=== PATIENT | male | born 1970 | race Caucasian/White ===

== ENCOUNTER 2016-09-15 16:01 | Observation (INO) ==
[2016-09-15] MEDS ORDERED: Ipratropium/Albuterol Neb 3 ML IH ONE (16:26)
[2016-09-15] MEDS ORDERED: methylPREDNISolone 125 MG/2 ML VIAL IVP ONE (16:26)
--- NOTE | 2016-09-15 16:28 | Emergency Department Note ---
Disposition Clinical Impression: Acute exacerbation of chronic obstructive airways disease Disposition: Admitted As Inpatient Referrals: NO,PCP [Non-Partnered Physician] - Forms: ED Satisfaction Letter SOB HPI - General Chief Complaint: ED Shortness of Breath/Dyspnea Stated Complaint: ADELINE, cough Time Seen by Provider: 09/15/16 16:09 Source: patient Mode of arrival: ambulatory Limitations: no limitations Nursing Notes Reviewed: Yes Vital Signs Reviewed: Yes - History of Present Illness Patient is a 45-year-old male with a history of COPD he is coming for shortness of breath and wheezing. In the last month he has had to outpatient course of antibiotics and steroids. He went to his primary care physician today who referred him over here for dyspnea. He has not smoked since Sunday is having difficulty breathing wheezing despite all medical therapy. His last hospitalization was over a year ago for COPD exacerbation Pt Subjective Complaint: shortness of breath Onset (ago): day(s) (2) Context: recent illness Severity: moderate Consistency/Duration: gradually worsening Improves with: oxygen, rest, bronchodilators, upright position Worsens with: exertion Known history of: COPD Associated symptoms: Reports: chest pain, cough, wheezing. Denies: fever Treatment prior to arrival: bronchodilator Cough present: Yes Cough Description: Involuntary Cough Frequency: Intermittent Sputum production: No - Related Data Home Medications Medication Instructions Recorded Confirmed Albuterol Sulfate [Albuterol 0 puff IH Q6HR PRN 03/26/15 08/13/16 Inhaler] Allopurinol [Zyloprim 100 MG] 100 mg PO BID 03/26/15 08/13/16 Atorvastatin [Lipitor] 20 mg PO HS 03/26/15 08/13/16 Furosemide [Lasix] 40 mg PO DAILY 03/26/15 08/13/16 Lisinopril [Zestril] 20 mg PO DAILY 03/26/15 08/13/16 Metformin [Glucophage] 1,000 mg PO BIDWM 03/26/15 08/13/16 Metoprolol [Lopressor] 50 mg PO BID 03/26/15 08/13/16 Multivitamin/Iron/Folic Acid 1 each PO DAILY 03/26/15 08/13/16 [Centrum Complete Multivit Tab] Potassium Chloride 10 meq PO DAILY 03/26/15 08/13/16 Pregabalin [Lyrica] 150 mg PO BID 03/26/15 08/13/16 Oxycodone HCl/Acetaminophen 1 each PO TID 08/13/16 08/13/16 [Percocet 7.5-325 mg Tablet] Previous Rx's Medication Instructions Recorded PredniSONE 40 mg PO DAILY #10 tablet 04/19/16 Dicyclomine [Bentyl] 10 mg PO QID #24 capsule 08/13/16 MetroNIDAZOLE [Flagyl] 500 mg PO TID #21 tablet 08/13/16 Ondansetron ODT [Zofran ODT] 4 mg SL Q6HR #20 tab.rapdis 08/13/16 Allergies Allergy/AdvReac Type Severity Reaction Status Date / Time acetaminophen [From Lortab] AdvReac Vomiting Verified 08/13/16 13:51 hydrocodone [From Lortab] AdvReac Vomiting Verified 08/13/16 13:51 morphine AdvReac Headache Verified 08/13/16 13:51 NSAIDS (Non-Steroidal AdvReac Nausea Verified 08/13/16 13:51 Anti-Inflamma All systems ED: reviewed and negative except as stated. Constitutional: Denies: fever, chills, weakness Gastrointestinal: Denies: abdominal pain, nausea, vomiting Past Medical History - Past Medical History Source: patient, old records reviewed, nursing notes reviewed Medical history: Reports: asthma, CHF, COPD, diabetes, hyperlipidemia, hypertension, kidney stones, renal disease, other Surgical history: Reports: other (Tonsillectomy, left knee scope, left clavicle fixation, right thumb surgery) Psychiatric history: Reports: anxiety, depression, panic disorder, PTSD - Social History Smoking Status: Current some day smoker Smokeless Tobacco Status: No Alcohol use: Reports: none Drug use: Reports: none Physical Exam - General Limitations: no limitations General appearance: alert, in distress (respiratory) - Head Head exam: atraumatic - Eye Eye exam: Present: normal appearance, PERRL, EOMI - Expanded Eye Exam Pupils: Left: reactive - ENT ENT exam: normal exam, normal oropharynx, mucous membranes moist - Expanded ENT Exam External ear exam: Present: normal external inspection Mouth exam: Present: normal external inspection Teeth exam: Present: normal inspection Throat exam: Present: normal inspection - Neck Neck exam: Present: normal inspection, full ROM, trachea midline - Chest Chest inspection: Present: normal inspection, symmetric chest wall rise - Respiratory Respiratory exam: Present: respiratory distress (mild, ), wheezes (scattered), accessory muscle use, prolonged expiratory phase - Cardiovascular Cardiovascular exam: Present: regular rate, normal rhythm, normal heart sounds - Abdominal Exam Abdominal exam: Present: soft, Non-Tender. Absent: tenderness, distention, guarding, rebound, rigidity - Extremities Exam Extremities exam: Present: normal inspection, full ROM. Absent: tenderness, pedal edema - Expanded Upper Extremity Exam Shoulder exam: Present: normal inspection, full ROM Arm exam: Present: normal inspection, full ROM Elbow exam: Present: normal inspection, full ROM Forearm/Wrist exam: Present: normal inspection, full ROM Hand exam: Present: normal inspection, full ROM Vascular exam: Normal: capillary refill, radial pulse - Expanded Lower Extremity Exam Hip/Pelvis exam: Present: normal inspection, full ROM Upper leg exam: Present: normal inspection, full ROM Knee exam: Present: normal inspection, full ROM Lower leg exam: Present: normal inspection, full ROM Ankle exam: Present: normal inspection, full ROM Foot/toe exam: Present: normal inspection, full ROM Neurovascular/Tendon exam: Absent: motor deficit, sensory deficit, tendon deficit - Back Exam Back exam: Present: normal inspection, full ROM. Absent: tenderness - Neurological Exam Neurological exam: Present: alert, oriented X3 - Expanded Neurological Exam Patient oriented to: Present: person, place, time Coma Scale Eye Opening: Spontaneous Coma Scale Motor Response: Obeys Commands Coma Scale Verbal Response: Oriented Coma Scale Total: 15 - Psychiatric Psychiatric exam: Present: normal affect, normal mood - Skin Skin exam: Present: warm, dry, intact, normal color Course - Reevaluation(s) Reevaluation #1: some improvement in breathing Time: 17:58 Vital Signs Temperature 97.8 F 09/15/16 16:02 Pulse Rate 79 09/15/16 16:02 Respiratory Rate 16 09/15/16 16:02 Blood Pressure 169/96 09/15/16 16:02 O2 Sat by Pulse Oximetry 93 L 09/15/16 16:02 Temperature 97.8 F 09/15/16 16:02 Pulse Rate 79 09/15/16 16:02 Respiratory Rate 16 09/15/16 16:33 Blood Pressure 169/96 09/15/16 16:33 O2 Sat by Pulse Oximetry 95 09/15/16 16:33 Oxygen Delivery Oxygen Delivery Room Air Shortness of Breath/Dyspnea - Differential Diagnosis Likely: acute exacerbation of chronic obstructive airways disease, congestive heart failure, pneumonia, asthma with exacerbation, arrhythmia - Medical Records Medical records reviewed: Yes I reviewed the patient's medical records. - Lab Data Lab results reviewed: Yes I reviewed the patient's lab results. Result diagrams: 09/15/16 16:20 09/15/16 16:20 Lab Results 09/15/16 09/15/16 09/15/16 Range/Units 16:20 16:20 16:20 WBC 13.1 H (4.3-11.1) K/mcL RBC 6.28 H (4.19-5.50) M/mcL Hgb 16.0 (12.9-16.9) g/dL Hct 49.9 (37.5-50.1) % MCV 79.5 L (83.0-100.0) fL MCH 25.5 L (28.0-33.3) pg MCHC 32.1 (31.6-35.5) g/dL RDW 17.2 H (11.5-14.5) % Plt Count 231 (140-400) K/mcL MPV 10.7 (9.4-12.4) fL Immature Gran % 1.3 (0-4) % Seg Neutrophils % 75.6 % Lymphocytes % 12.5 % Monocytes % 6.9 % Eosinophils % 3.1 % Basophils % 0.6 % Neutrophils # 9.9 H (1.6-8.9) K/mcL Lymphocytes # 1.6 (0.6-4.6) K/mcL Monocytes # 0.9 (0.0-1.3) K/mcL Eosinophils # 0.4 (0.0-0.6) K/mcL Basophils # 0.1 (0.0-0.2) K/mcL PT 13.3 H (9.4-12.1) Seconds INR 1.2 APTT 33.5 (26.0-36.0) Seconds Sodium 140 (136-145) mEq/L Potassium 3.6 (3.5-4.5) mEq/L Chloride 101 (98-109) mEq/L Carbon Dioxide 26 (19-29) mEq/L BUN 19 (8-26) mg/dL Creatinine 1.08 (0.72-1.25) mg/dL Est GFR ( Amer) > 60 (> 60) Est GFR (Non-Af Amer) > 60 (> 60) BUN/Creatinine Ratio 18 (6-26) Glucose 109 H (70-99) mg/dL Calculated Osmolality 293 (280-300) Calcium 10.0 (8.6-10.8) mg/dL Troponin I (0-0.03) ng/mL B-Natriuretic Peptide (0-100) pg/mL 09/15/16 09/15/16 Range/Units 16:20 16:20 WBC (4.3-11.1) K/mcL RBC (4.19-5.50) M/mcL Hgb (12.9-16.9) g/dL Hct (37.5-50.1) % MCV (83.0-100.0) fL MCH (28.0-33.3) pg MCHC (31.6-35.5) g/dL RDW (11.5-14.5) % Plt Count (140-400) K/mcL MPV (9.4-12.4) fL Immature Gran % (0-4) % Seg Neutrophils % % Lymphocytes % % Monocytes % % Eosinophils % % Basophils % % Neutrophils # (1.6-8.9) K/mcL Lymphocytes # (0.6-4.6) K/mcL Monocytes # (0.0-1.3) K/mcL Eosinophils # (0.0-0.6) K/mcL Basophils # (0.0-0.2) K/mcL PT (9.4-12.1) Seconds INR APTT (26.0-36.0) Seconds Sodium (136-145) mEq/L Potassium (3.5-4.5) mEq/L Chloride (98-109) mEq/L Carbon Dioxide (19-29) mEq/L BUN (8-26) mg/dL Creatinine (0.72-1.25) mg/dL Est GFR ( Amer) (> 60) Est GFR (Non-Af Amer) (> 60) BUN/Creatinine Ratio (6-26) Glucose (70-99) mg/dL Calculated Osmolality (280-300) Calcium (8.6-10.8) mg/dL Troponin I 0.03 (0-0.03) ng/mL B-Natriuretic Peptide 21 (0-100) pg/mL - Radiology Data Radiology results reviewed: Yes I reviewed the patient's radiology results. - EKG Data EKG attestation: Yes I reviewed and interpreted this EKG. EKG shows normal: Reports: sinus rhythm Rate: Reports: normal (86) Rhythm: Reports: NSR [place]/QRS: Reports: normal Interpretation: Reports: nonspecific ST-T wave changes
[2016-09-15] MEDS ORDERED: Ipratropium/Albuterol Neb 3 ML ONE (16:29)
[2016-09-15 17:02] LABS: Basophils # 0.1 K/mcL (0.0-0.2); Basophils % 0.6 %; Eosinophils # 0.4 K/mcL (0.0-0.6); Eosinophils % 3.1 %; Hematocrit 49.9 % (37.5-50.1); Immature Granulocytes % 1.3 % (0-4); Lymphocytes # 1.6 K/mcL (0.6-4.6); Lymphocytes % 12.5 %; Mean Corpuscular HGB Conc 32.1 g/dL (31.6-35.5); Mean Corpuscular Hemoglobin 25.5 pg (28.0-33.3); Mean Corpuscular Volume 79.5 fL (83.0-100.0); Mean Platelet Volume 10.7 fL (9.4-12.4); Monocytes # 0.9 K/mcL (0.0-1.3); Monocytes % 6.9 %; Neutrophils # 9.9 K/mcL (1.6-8.9); Platelet Count 231 K/mcL (140-400); Red Blood Count 6.28 M/mcL (4.19-5.50); Red Cell Distribution Width 17.2 % (11.5-14.5); Segmented Neutrophils % 75.6 %
[2016-09-15 17:07] LABS: INR 1.2; Prothrombin Time 13.3 Seconds (9.4-12.1)
[2016-09-15 17:10] LABS: Activated Partial Thrombo Time 33.5 Seconds (26.0-36.0)
[2016-09-15 17:20] LABS: BUN/Creatinine Ratio 18 (6-26); Blood Urea Nitrogen 19 mg/dL (8-26); Carbon Dioxide 26 mEq/L (19-29); Chloride 101 mEq/L (98-109); Glucose 109 mg/dL (70-99); Osmolality,Calculated 293 (280-300); Potassium 3.6 mEq/L (3.5-4.5); Sodium 140 mEq/L (136-145); eGFR For African Americans > 60 (> 60); eGFR For Non-African Americans > 60 (> 60)
[2016-09-15] MEDS ORDERED: Levofloxacin 750 MG/150 ML 750 MG/150 ML BAG IVPB ONE (17:36)
[2016-09-15] MEDS ORDERED: Furosemide 40 MG/4 ML VIAL IVP ONE (21:19)
--- NOTE | 2016-09-15 21:53 | Internal Med History&Physical ---
Date of Encounter: 09/15/16 Time of Encounter: 21:49 Assessment and Plan (1) Acute exacerbation of chronic obstructive airways disease Current visit: Yes Status: Acute Patient will be started on IV steroids q 4h breathing treatments and Levaquin for acute bronchitis. (2) CHF (congestive heart failure) Current visit: No Status: Chronic 80 mg of iV lasix given now. Will start the patient only 640 mg IV twice a day. Strict intake and output Qualifiers: Congestive heart failure type: diastolic Congestive heart failure chronicity: acute on chronic Qualified Code(s): I50.33 - Acute on chronic diastolic (congestive) heart failure (3) DM (diabetes mellitus), type 2 with renal complications Current visit: No Status: Chronic Sliding scale insulin Qualifiers: Diabetes mellitus complication detail: with chronic kidney disease Chronic kidney disease stage: stage 3 (moderate) Qualified Code(s): E11.22 - Type 2 diabetes mellitus with diabetic chronic kidney disease; N18.3 - Chronic kidney disease, stage 3 (moderate); Z79.4 - adjunct faculty for medical terminology (current) use of insulin (4) ELIZABETH on CPAP Current visit: Yes Status: Acute Continue CPAP Internal Medicine - H&P: HPI Chief complaint: sob History of present illness: Mr. Beth is a 45 year old male with multiple medical problems including history of diastolic congestive heart failure, COPD not on home oxygen, obstructive sleep apnea on CPAP presents to the emergency room today with shortness of breath. Patient mentioned that his respiratory status has actually been declining for the past one month. He had just completed a course of prednisone 40 mg a day for 5 days and a week of antibiotic which he does not recall its name without any improvement in his symptoms. For the past 3 days he has been noticing progressive shortness of breath for he is unable to breathe rest, nonproductive cough chest wheezing. In addition patient has shortness of breath that worsens when he lays flat and bilateral lower extremity swelling. He denies any chest pain. He denies any fevers. He had a prior angiogram showing no conclusive coronary artery disease. patient continues to actively smoke affects cigarettes daily. Past Med Surg Social Fam HX - Past Medical History Medical history: asthma, CHF, COPD, diabetes, hyperlipidemia, hypertension, kidney stones, renal disease, other Psychiatric history: anxiety, depression, panic disorder, PTSD - Past Surgical History Surgical History: other (Tonsillectomy, left knee scope, left clavicle fixation , right thumb surgery) - Social History Smoking Status: Current some day smoker Smokeless Tobacco Status: No Alcohol use: none Drug use: none - Family History Mother Living Status: Father Living Status: Hx Family Cardiac Disorders: Yes Internal Medicine - H&P: Meds Albuterol Sulfate [Albuterol Inhaler] 2 puff IH Q4H PRN 03/26/15 [History] Allopurinol [Zyloprim 100 MG] 100 mg PO BID 03/26/15 [History] Atorvastatin [Lipitor] 20 mg PO HS 03/26/15 [History] Lisinopril [Zestril] 20 mg PO DAILY 03/26/15 [History] Metformin [Glucophage] 1,000 mg PO BIDWM 03/26/15 [History] Metoprolol [Lopressor] 50 mg PO BID 03/26/15 [History] Multivitamin/Iron/Folic Acid [Centrum Complete Multivit Tab] 1 each PO DAILY [History] Potassium Chloride 20 meq PO DAILY 03/26/15 [History] Pregabalin [Lyrica] 150 mg PO BID 03/26/15 [History] Oxycodone HCl/Acetaminophen [Percocet 7.5-325 mg Tablet] 1 each PO TID PRN 08/13 [History] Fluticasone/Salmeterol [Advair 250-50 Diskus] 1 each IH BID 09/15/16 [History] Furosemide [Lasix] 20 mg PO BID 09/15/16 [History] Tiotropium [Spiriva] 18 mcg IH DAILY 09/15/16 [History] Trazodone HCl 150 mg PO HS 09/15/16 [History] Allergies acetaminophen [From Lortab] Adverse Reaction (Verified 08/13/16 13:51) Vomiting hydrocodone [From Lortab] Adverse Reaction (Verified 08/13/16 13:51) Vomiting morphine Adverse Reaction (Verified 08/13/16 13:51) Headache NSAIDS (Non-Steroidal Anti-Inflamma Adverse Reaction (Verified 08/13/16 13:51) Nausea All Systems PM: A 10-system review of systems was performed and is negative for pertinent findings except as documented above in the HPI. Review of systems: 10 point ROS is negative except for HPI - Constitutional Vitals: Temp Pulse Resp BP Pulse Ox 97.5 F L 89 18 181/100 89 L 09/15/16 21:11 09/15/16 21:11 09/15/16 21:11 09/15/16 21:11 09/15/16 21:11 Exam: Gen.: patient is alert and oriented times 3 and often distress cardiac: normal S1 S2 no additional sounds or murmurs chest: bilateral basil crackles. Scattered expiratory wheezing. Conversational dyspnea lower extremity 2+ swelling Neuro: no focal neurological deficit Internal Med - H&P Results - Labs CBC & Chem 7: 09/15/16 16:20 09/15/16 16:20
[2016-09-15] MEDS: *HR* OxyCODONE/APAP 7.5/325 TABLET PO PRN (22:31)
[2016-09-15] MEDS: Ipratropium/Albuterol Neb 3 ML IH SCH (23:19)
[2016-09-16] MEDS: methylPREDNISolone 125 MG/2 ML VIAL IVP SCH ×5 (00:25→23:44)
[2016-09-16] MEDS: Ipratropium/Albuterol Neb 3 ML IH SCH ×6 (04:08→23:50)
[2016-09-16 04:54] LABS: Basophils % 0.2 %; Hematocrit 50.5 % (37.5-50.1); Immature Granulocytes % 1.8 % (0-4); Lymphocytes # 0.5 K/mcL (0.6-4.6); Lymphocytes % 5.6 %; Mean Corpuscular HGB Conc 31.7 g/dL (31.6-35.5); Mean Corpuscular Hemoglobin 25.1 pg (28.0-33.3); Mean Corpuscular Volume 79.3 fL (83.0-100.0); Mean Platelet Volume 10.6 fL (9.4-12.4); Monocytes # 0.1 K/mcL (0.0-1.3); Monocytes % 0.8 %; Neutrophils # 8.2 K/mcL (1.6-8.9); Platelet Count 230 K/mcL (140-400); Red Blood Count 6.37 M/mcL (4.19-5.50); Red Cell Distribution Width 16.8 % (11.5-14.5); Segmented Neutrophils % 91.6 %
[2016-09-16 05:16] LABS: BUN/Creatinine Ratio 18 (6-26); Blood Urea Nitrogen 20 mg/dL (8-26); Calcium 9.7 mg/dL (8.6-10.8); Carbon Dioxide 24 mEq/L (19-29); Chloride 101 mEq/L (98-109); Creatine Kinase 48 Units/L (30-200); Glucose 241 mg/dL (70-99); Magnesium 1.9 mg/dL (1.6-2.6); Osmolality,Calculated 297 (280-300); Potassium 3.9 mEq/L (3.5-4.5); Sodium 138 mEq/L (136-145); eGFR For African Americans > 60 (> 60); eGFR For Non-African Americans > 60 (> 60)
[2016-09-16] MEDS: *HR* Enoxaparin 40 MG/0.4 ML SYRINGE SQ SCH (05:38)
[2016-09-16] MEDS: Insulin LISPRO 300 UNITS/3 ML VIAL SQ SCH ×3 (08:10→17:40)
[2016-09-16] MEDS: Famotidine 20 MG TABLET PO SCH ×2 (08:10→17:40)
[2016-09-16] MEDS: Pregabalin 75 MG CAPSULE PO SCH ×2 (08:10→20:01)
[2016-09-16] MEDS: Furosemide 40 MG/4 ML VIAL IV SCH ×2 (08:13→20:01)
[2016-09-16] MEDS ORDERED: Furosemide 40 MG in 0.9 % Sodium Chloride 50 ML IVPB SCH (09:00)
[2016-09-16] MEDS: Budesonide/Formoterol 80/4.5 MDI IH SCH ×2 (09:09→19:54)
[2016-09-16] MEDS: *HR* OxyCODONE/APAP 7.5/325 TABLET PO PRN ×2 (09:17→17:49)
--- NOTE | 2016-09-16 16:31 | Internal Med Progress Note ---
Date of Encounter: 09/16/16 Time of Encounter: 10:00 - Assessment and plan (1) CHF exacerbation Current Visit: Yes Status: Acute Assessment and plan: Previous echo shows moderate diastolic dysfunction. Will continue with IV diuretic treatment. Manage hypertension. Qualifiers: Congestive heart failure type: diastolic Qualified Code(s): I50.33 - Acute on chronic diastolic (congestive) heart failure (2) Acute exacerbation of chronic obstructive airways disease Current Visit: Yes Status: Acute Assessment and plan: We will continue antibiotic, steroid, and bronchodilator. Oxygen supplement. (3) ELIZABETH on CPAP Current Visit: Yes Status: Acute Assessment and plan: Continue CPAP during night (4) DM (diabetes mellitus), type 2 with renal complications Current Visit: No Status: Chronic Assessment and plan: Patient was on metformin at home. We will cover him with sliding scale. Qualifiers: Diabetes mellitus complication detail: with chronic kidney disease Chronic kidney disease stage: stage 3 (moderate) Qualified Code(s): E11.22 - Type 2 diabetes mellitus with diabetic chronic kidney disease; N18.3 - Chronic kidney disease, stage 3 (moderate); Z79.4 - care home (current) use of insulin (5) DVT prophylaxis Current Visit: No Status: Acute Assessment and plan: Lovenox sc (6) Hypertension Current Visit: Yes Status: Acute Assessment and plan: Continue home medications Qualifiers: Hypertension type: essential hypertension Qualified Code(s): I10 - Essential (primary) hypertension - Time Spent With Patient 25 - 35 minutes - Subjective Interval history: Patient is a 45 year old male admitted for shortness of breath. Consider CHF exacerbation and COPD exacerbation. His past medical history is significant for COPD, CHF, diabetes, hyperlipidemia, hypertension. Patient was seen and examined. His shortness of breath has improved after treatment. Patient is in no acute respiratory distress when I saw him. No fever, vital signs stable, still need high-level oxygen to maintain oxygen saturation. Will continue diuretics, antibiotics, steroids, and the bronchodilator treatment. Continue close monitoring. - Constitutional Vitals: Temp Pulse Resp BP Pulse Ox 97.8 F 69 18 151/68 91 L 09/16/16 15:20 09/16/16 15:20 09/16/16 15:20 09/16/16 15:20 09/16/16 15:27 General appearance: Present: mild distress, A&O X 3, answers questions appropriately - Head Head exam: Present: atraumatic, normocephalic - Eye Eye exam: Present: PERRL, conjuntiva pink, sclera anicteric Pupils: Present: PERRL - Neck Neck exam general surgery: Present: supple, trachea midline. Absent: lymphadenopathy - Respiratory Respiratory exam: Present: CTAB, wheezes (Scattered wheezes bilaterally). Absent: accessory muscle use, rales, rhonchi - Cardiovascular Cardiovascular exam: Present: RRR, +S1, +S2. Absent: diastolic murmur, gallop, rubs, systolic murmur - GI/Abdominal GI/Abdominal exam: Present: normal bowel sounds, soft, no peritoneal signs. Absent: distended, tenderness - Extremities Exam Extremities exam: Present: warm, radial pulses palpable and symetrical. Absent : calf tenderness, cyanotic, pedal edema - Neurological Exam Neurological exam: Present: CN II-XII intact, oriented X3, no focal deficits. Absent: pronater drift, facial droop, speech deficit - Skin Skin exam: Present: dry, intact Internal Medicine: Result - Labs CBC & Chem 7: 09/16/16 04:27 09/16/16 04:27 Labs: Short CBC 09/16/16 Range/Units 04:27 WBC 9.0 (4.3-11.1) K/mcL Hgb 16.0 (12.9-16.9) g/dL Hct 50.5 H (37.5-50.1) % Plt Count 230 (140-400) K/mcL Neutrophils # 8.2 (1.6-8.9) K/mcL BMP 09/16/16 04:27 Sodium 138 Potassium 3.9 Chloride 101 Carbon Dioxide 24 BUN 20 Creatinine 1.11 Glucose 241 H Calcium 9.7 Cardiac Enzymes 09/15/16 09/16/16 Range/Units 22:31 04:27 Troponin I 0.02 0.01 (0-0.03) ng/mL - ABG Interpretation ABG results: PT/INR, D-dimer PT 13.3 Seconds (9.4-12.1) H 09/15/16 16:20 Consult Discharge Plan - Plan Referrals: Rangel Puentes DO [Primary Care Provider] -
[2016-09-16] MEDS ORDERED: *HR* OxyCODONE/APAP 7.5/325 TABLET PO PRN (16:33)
[2016-09-16] MEDS: Lisinopril 20 MG TABLET PO SCH (17:40)
[2016-09-16] MEDS: Levofloxacin 750 MG/150 ML 750 MG/150 ML BAG IVPB SCH (17:41)
[2016-09-16] MEDS: traZODone 50 MG TABLET PO SCH (20:01)
[2016-09-16] MEDS ORDERED: Insulin LISPRO 300 UNITS/3 ML VIAL SQ SCH (21:00)
[2016-09-17] MEDS: Ipratropium/Albuterol Neb 3 ML IH SCH ×6 (03:27→23:18)
[2016-09-17] MEDS: *HR* OxyCODONE/APAP 7.5/325 TABLET PO PRN ×3 (04:00→20:12)
[2016-09-17] MEDS: *HR* Enoxaparin 40 MG/0.4 ML SYRINGE SQ SCH (06:03)
[2016-09-17] MEDS: methylPREDNISolone 125 MG/2 ML VIAL IVP SCH ×3 (06:05→23:27)
[2016-09-17] MEDS: Lisinopril 20 MG TABLET PO SCH (07:35)
[2016-09-17] MEDS: Pregabalin 75 MG CAPSULE PO SCH ×2 (07:35→20:13)
[2016-09-17] MEDS: Multivit/Ca/Min/Fe/FA 1 TAB TABLET PO SCH (07:35)
[2016-09-17] MEDS: Insulin LISPRO 300 UNITS/3 ML VIAL SQ SCH ×4 (07:35→20:12)
[2016-09-17] MEDS: Furosemide 40 MG/4 ML VIAL IV SCH ×2 (07:35→20:12)
[2016-09-17] MEDS: Famotidine 20 MG TABLET PO SCH ×2 (07:35→16:55)
[2016-09-17 08:07] LABS: Basophils % 0.1 %; Hemoglobin 15.1 g/dL (12.9-16.9); Immature Granulocytes % 1.4 % (0-4); Lymphocytes # 0.6 K/mcL (0.6-4.6); Lymphocytes % 3.2 %; Mean Corpuscular HGB Conc 31.5 g/dL (31.6-35.5); Mean Corpuscular Hemoglobin 25.1 pg (28.0-33.3); Mean Corpuscular Volume 79.9 fL (83.0-100.0); Mean Platelet Volume 11.6 fL (9.4-12.4); Monocytes # 0.6 K/mcL (0.0-1.3); Monocytes % 3.3 %; Neutrophils # 16.8 K/mcL (1.6-8.9); Platelet Count 241 K/mcL (140-400); Red Blood Count 6.01 M/mcL (4.19-5.50); Red Cell Distribution Width 16.7 % (11.5-14.5)
[2016-09-17 08:09] LABS: BUN/Creatinine Ratio 29 (6-26); Calcium 9.3 mg/dL (8.6-10.8); Carbon Dioxide 25 mEq/L (19-29); Chloride 100 mEq/L (98-109); Glucose 227 mg/dL (70-99); Osmolality,Calculated 300 (280-300); Sodium 138 mEq/L (136-145); eGFR For African Americans > 60 (> 60); eGFR For Non-African Americans > 60 (> 60)
[2016-09-17 08:10] LABS: Blood Urea Nitrogen 33 mg/dL (8-26)
[2016-09-17] MEDS: Tiotropium 18 MCG inhalation IH SCH (09:05)
[2016-09-17] MEDS: Budesonide/Formoterol 80/4.5 MDI IH SCH ×2 (09:05→19:58)
--- NOTE | 2016-09-17 13:31 | Electrocardiograph Report ---
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
[2016-09-17] MEDS: Levofloxacin 750 MG/150 ML 750 MG/150 ML BAG IVPB SCH (16:56)
--- NOTE | 2016-09-17 17:46 | Internal Med Progress Note ---
Date of Encounter: 09/17/16 Time of Encounter: 10:00 - Assessment and plan (1) CHF exacerbation Current Visit: Yes Status: Acute Assessment and plan: Previous echo shows moderate diastolic dysfunction. Will continue with IV diuretic treatment. Manage hypertension. Qualifiers: Congestive heart failure type: diastolic Qualified Code(s): I50.33 - Acute on chronic diastolic (congestive) heart failure (2) Acute exacerbation of chronic obstructive airways disease Current Visit: Yes Status: Acute Assessment and plan: We will continue antibiotic, steroid, and bronchodilator. Oxygen supplement. No wheezing now, taper down steroids. (3) ELIZABETH on CPAP Current Visit: Yes Status: Acute Assessment and plan: Continue CPAP during night (4) DM (diabetes mellitus), type 2 with renal complications Current Visit: No Status: Chronic Assessment and plan: Patient was on metformin at home. We will cover him with sliding scale. Patient has steroid induced hyperglycemia, increased to high dose correction insulin dose Qualifiers: Diabetes mellitus complication detail: with chronic kidney disease Chronic kidney disease stage: stage 3 (moderate) Qualified Code(s): E11.22 - Type 2 diabetes mellitus with diabetic chronic kidney disease; N18.3 - Chronic kidney disease, stage 3 (moderate); Z79.4 - retirement (current) use of insulin (5) DVT prophylaxis Current Visit: No Status: Acute Assessment and plan: Lovenox sc (6) Hypertension Current Visit: Yes Status: Acute Assessment and plan: Continue home medications, add nifedipine because BP is poorly controlled Qualifiers: Hypertension type: essential hypertension Qualified Code(s): I10 - Essential (primary) hypertension - Time Spent With Patient 25 - 35 minutes - Subjective Interval history: Patient is a 45 year old male admitted for shortness of breath. Consider CHF exacerbation and COPD exacerbation. His past medical history is significant for COPD, CHF, diabetes, hyperlipidemia, hypertension. Patient was seen and examined. His shortness of breath has improved after treatment. Patient is in no acute respiratory distress when I saw him. No fever, vital signs stable, oxygen requirement get down. Oxygen saturation 94% on 2 L. Will continue diuretics, antibiotics, steroids, and the bronchodilator treatment. Taper down steroid dose. Continue close monitoring. - Constitutional Vitals: Temp Pulse Resp BP Pulse Ox 97.6 F 71 16 182/78 94 L 09/17/16 15:43 09/17/16 15:43 09/17/16 16:02 09/17/16 15:43 09/17/16 16:02 General appearance: Present: mild distress, A&O X 3, answers questions appropriately - Head Head exam: Present: atraumatic, normocephalic - Eye Eye exam: Present: PERRL, conjuntiva pink, sclera anicteric Pupils: Present: PERRL - Neck Neck exam general surgery: Present: supple, trachea midline. Absent: lymphadenopathy - Respiratory Respiratory exam: Present: CTAB. Absent: accessory muscle use, rales, rhonchi, wheezes - Cardiovascular Cardiovascular exam: Present: RRR, +S1, +S2. Absent: diastolic murmur, gallop, rubs, systolic murmur - GI/Abdominal GI/Abdominal exam: Present: normal bowel sounds, soft, no peritoneal signs. Absent: distended, tenderness - Extremities Exam Extremities exam: Present: warm, radial pulses palpable and symetrical. Absent : calf tenderness, cyanotic, pedal edema - Neurological Exam Neurological exam: Present: CN II-XII intact, oriented X3, no focal deficits. Absent: pronater drift, facial droop, speech deficit - Skin Skin exam: Present: dry, intact Internal Medicine: Result - Labs CBC & Chem 7: 09/17/16 07:06 09/17/16 07:06 Labs: Short CBC 09/17/16 Range/Units 07:06 WBC 18.3 H D (4.3-11.1) K/mcL Hgb 15.1 (12.9-16.9) g/dL Hct 48.0 (37.5-50.1) % Plt Count 241 (140-400) K/mcL Neutrophils # 16.8 H (1.6-8.9) K/mcL BMP 09/17/16 07:06 Sodium 138 Potassium 4.0 Chloride 100 Carbon Dioxide 25 BUN 33 H D Creatinine 1.13 Glucose 227 H Calcium 9.3 - ABG Interpretation ABG results: PT/INR, D-dimer PT 13.3 Seconds (9.4-12.1) H 09/15/16 16:20 - VTE Documentation of Mechanical Device: Intermittent pneumatic compression device Consult Discharge Plan - Plan Referrals: Rangel Puentes DO [Primary Care Provider] -
[2016-09-17] MEDS: NIFEdipine XL (24 HR) 60 MG TAB.ER.24 PO SCH (18:06)
[2016-09-17] MEDS: traZODone 50 MG TABLET PO SCH (20:13)
[2016-09-18] MEDS: Ipratropium/Albuterol Neb 3 ML IH SCH ×6 (03:32→23:31)
[2016-09-18] MEDS: *HR* OxyCODONE/APAP 7.5/325 TABLET PO PRN ×3 (04:45→22:12)
[2016-09-18 05:14] LABS: Basophils % 0.1 %; Hematocrit 50.5 % (37.5-50.1); Hemoglobin 15.5 g/dL (12.9-16.9); Immature Granulocytes % 1.5 % (0-4); Lymphocytes # 0.5 K/mcL (0.6-4.6); Lymphocytes % 2.7 %; Mean Corpuscular HGB Conc 30.7 g/dL (31.6-35.5); Mean Corpuscular Hemoglobin 24.7 pg (28.0-33.3); Mean Corpuscular Volume 80.4 fL (83.0-100.0); Mean Platelet Volume 10.9 fL (9.4-12.4); Monocytes # 0.5 K/mcL (0.0-1.3); Monocytes % 3.1 %; Neutrophils # 16.4 K/mcL (1.6-8.9); Platelet Count 231 K/mcL (140-400); Red Blood Count 6.28 M/mcL (4.19-5.50); Red Cell Distribution Width 17.5 % (11.5-14.5); Segmented Neutrophils % 92.6 %
[2016-09-18 05:31] LABS: BUN/Creatinine Ratio 33 (6-26); Calcium 9.3 mg/dL (8.6-10.8); Carbon Dioxide 22 mEq/L (19-29); Chloride 102 mEq/L (98-109); Glucose 201 mg/dL (70-99); Osmolality,Calculated 303 (280-300); Potassium 4.1 mEq/L (3.5-4.5); Sodium 138 mEq/L (136-145); eGFR For African Americans > 60 (> 60); eGFR For Non-African Americans 58 (> 60)
[2016-09-18 05:36] LABS: Blood Urea Nitrogen 44 mg/dL (8-26)
[2016-09-18] MEDS: *HR* Enoxaparin 40 MG/0.4 ML SYRINGE SQ SCH (06:32)
[2016-09-18] MEDS: Furosemide 40 MG/4 ML VIAL IV SCH (08:05)
[2016-09-18] MEDS: Famotidine 20 MG TABLET PO SCH (08:06)
[2016-09-18] MEDS: NIFEdipine XL (24 HR) 60 MG TAB.ER.24 PO SCH (08:06)
[2016-09-18] MEDS: Multivit/Ca/Min/Fe/FA 1 TAB TABLET PO SCH (08:06)
[2016-09-18] MEDS: Pregabalin 75 MG CAPSULE PO SCH ×2 (08:06→22:11)
[2016-09-18] MEDS: Lisinopril 20 MG TABLET PO SCH (08:07)
[2016-09-18] MEDS: Insulin LISPRO 300 UNITS/3 ML VIAL SQ SCH ×4 (08:07→22:13)
[2016-09-18] MEDS: Tiotropium 18 MCG inhalation IH SCH (08:19)
[2016-09-18] MEDS: Budesonide/Formoterol 80/4.5 MDI IH SCH ×2 (08:21→20:34)
[2016-09-18] MEDS: methylPREDNISolone 125 MG/2 ML VIAL IVP SCH (11:51)
--- NOTE | 2016-09-18 15:24 | Internal Med Progress Note ---
Date of Encounter: 09/18/16 Time of Encounter: 10:00 - Assessment and plan (1) CHF exacerbation Current Visit: Yes Status: Acute Assessment and plan: Previous echo shows moderate diastolic dysfunction. Hold Lasix because of elevated creatinine. Fluid restriction for 1500 milligrams per day. Manage hypertension. Qualifiers: Congestive heart failure type: diastolic Qualified Code(s): I50.33 - Acute on chronic diastolic (congestive) heart failure (2) Acute exacerbation of chronic obstructive airways disease Current Visit: Yes Status: Acute Assessment and plan: We will continue antibiotic, and bronchodilator. Oxygen supplement. No wheezing now, will DC steroids. (3) ELIZABETH on CPAP Current Visit: Yes Status: Acute Assessment and plan: Continue CPAP during night (4) DM (diabetes mellitus), type 2 with renal complications Current Visit: No Status: Chronic Assessment and plan: Patient was on metformin at home. We will cover him with sliding scale. Patient has steroid induced hyperglycemia, increased to high dose correction insulin dose, D/C steroid. Qualifiers: Diabetes mellitus complication detail: with chronic kidney disease Chronic kidney disease stage: stage 3 (moderate) Qualified Code(s): E11.22 - Type 2 diabetes mellitus with diabetic chronic kidney disease; N18.3 - Chronic kidney disease, stage 3 (moderate); Z79.4 - continuous churn buttermaker (current) use of insulin (5) DVT prophylaxis Current Visit: No Status: Acute Assessment and plan: Lovenox sc (6) Hypertension Current Visit: Yes Status: Acute Assessment and plan: Continue home medications, add nifedipine because BP is poorly controlled. Now BP is stable after nifedipine placed. Qualifiers: Hypertension type: essential hypertension Qualified Code(s): I10 - Essential (primary) hypertension - Time Spent With Patient 25 - 35 minutes - Subjective Interval history: Patient is a 45 year old male admitted for shortness of breath. Consider CHF exacerbation and COPD exacerbation. His past medical history is significant for COPD, CHF, diabetes, hyperlipidemia, hypertension. Patient was seen and examined. His shortness of breath has improved after treatment. Patient is in no acute respiratory distress when I saw him. No fever, vital signs stable, oxygen requirement get down. Oxygen saturation 94% on 2 L. Will continue antibiotics, and the bronchodilator treatment. D/C steroid. Patient has a slightly worsening creatinine level, we will hold the Lasix. Patient has a good urine output but not negative fluid balance, will place fluid restriction. Patient has severe cough today, nonproductive. Will add Robitussin-AC. Continue close monitoring. - Constitutional Vitals: Temp Pulse Resp BP Pulse Ox 97.4 F L 61 18 135/74 99 09/18/16 10:44 09/18/16 10:44 09/18/16 11:39 09/18/16 10:44 09/18/16 11:39 General appearance: Present: A&O X 3, no acute distress, answers questions appropriately - Head Head exam: Present: atraumatic, normocephalic - Eye Eye exam: Present: PERRL, conjuntiva pink, sclera anicteric Pupils: Present: PERRL - Neck Neck exam general surgery: Present: supple, trachea midline. Absent: lymphadenopathy - Respiratory Respiratory exam: Present: CTAB. Absent: accessory muscle use, rales, rhonchi, wheezes - Cardiovascular Cardiovascular exam: Present: RRR, +S1, +S2. Absent: diastolic murmur, gallop, rubs, systolic murmur - GI/Abdominal GI/Abdominal exam: Present: normal bowel sounds, soft, no peritoneal signs. Absent: distended, tenderness - Extremities Exam Extremities exam: Present: warm, radial pulses palpable and symetrical. Absent : calf tenderness, cyanotic, pedal edema - Neurological Exam Neurological exam: Present: CN II-XII intact, oriented X3, no focal deficits. Absent: pronater drift, facial droop, speech deficit - Skin Skin exam: Present: dry, intact Internal Medicine: Result - Labs CBC & Chem 7: 09/18/16 04:20 09/18/16 04:20 Labs: Short CBC 09/18/16 Range/Units 04:20 WBC 17.6 H (4.3-11.1) K/mcL Hgb 15.5 (12.9-16.9) g/dL Hct 50.5 H (37.5-50.1) % Plt Count 231 (140-400) K/mcL Neutrophils # 16.4 H (1.6-8.9) K/mcL BMP 09/18/16 04:20 Sodium 138 Potassium 4.1 Chloride 102 Carbon Dioxide 22 BUN 44 H D Creatinine 1.33 H Glucose 201 H Calcium 9.3 - ABG Interpretation ABG results: PT/INR, D-dimer PT 13.3 Seconds (9.4-12.1) H 09/15/16 16:20 - VTE Documentation of Mechanical Device: Intermittent pneumatic compression device Consult Discharge Plan - Plan Referrals: Rangel Puentes DO [Primary Care Provider] -
[2016-09-18] MEDS: Levofloxacin 750 MG/150 ML 750 MG/150 ML BAG IVPB SCH (17:17)
[2016-09-18] MEDS: GuaiFENesin/Codeine Oral Soln 5 ML UDC PO SCH ×2 (17:18→22:11)
[2016-09-18 20:28] LABS: CK-MB (CK isoenzymes) 0 % (0-4); CK-MM (CK-isoenzymes) 100 % (96-100)
[2016-09-18 20:28] LABS: CK-MB (CK isoenzymes) 0 % (0-4); CK-MM (CK-isoenzymes) 100 % (96-100)
[2016-09-18] MEDS: traZODone 50 MG TABLET PO SCH (22:11)
[2016-09-19] MEDS: Ipratropium/Albuterol Neb 3 ML IH SCH ×3 (03:51→12:08)
[2016-09-19 05:17] LABS: Basophils % 0.1 %; Hematocrit 46.8 % (37.5-50.1); Lymphocytes # 0.9 K/mcL (0.6-4.6); Lymphocytes % 5.7 %; Mean Corpuscular HGB Conc 32.1 g/dL (31.6-35.5); Mean Corpuscular Hemoglobin 25.7 pg (28.0-33.3); Mean Corpuscular Volume 80.1 fL (83.0-100.0); Mean Platelet Volume 11.1 fL (9.4-12.4); Monocytes # 1.3 K/mcL (0.0-1.3); Monocytes % 8.3 %; Neutrophils # 12.9 K/mcL (1.6-8.9); Platelet Count 202 K/mcL (140-400); Red Blood Count 5.84 M/mcL (4.19-5.50); Red Cell Distribution Width 16.4 % (11.5-14.5); Segmented Neutrophils % 83.9 %
[2016-09-19] MEDS: GuaiFENesin/Codeine Oral Soln 5 ML UDC PO SCH (06:30)
[2016-09-19] MEDS: *HR* OxyCODONE/APAP 7.5/325 TABLET PO PRN (06:31)
[2016-09-19] MEDS: *HR* Enoxaparin 40 MG/0.4 ML SYRINGE SQ SCH (06:31)
[2016-09-19 07:02] LABS: BUN/Creatinine Ratio 46 (6-26); Blood Urea Nitrogen 54 mg/dL (8-26); Carbon Dioxide 22 mEq/L (19-29); Chloride 104 mEq/L (98-109); Glucose 189 mg/dL (70-99); Osmolality,Calculated 308 (280-300); Sodium 139 mEq/L (136-145); eGFR For African Americans > 60 (> 60); eGFR For Non-African Americans > 60 (> 60)
[2016-09-19] MEDS: Budesonide/Formoterol 80/4.5 MDI IH SCH (08:02)
[2016-09-19] MEDS: NIFEdipine XL (24 HR) 60 MG TAB.ER.24 PO SCH (08:33)
[2016-09-19] MEDS: Pregabalin 75 MG CAPSULE PO SCH (08:33)
[2016-09-19] MEDS: Multivit/Ca/Min/Fe/FA 1 TAB TABLET PO SCH (08:33)
[2016-09-19] MEDS: Insulin LISPRO 300 UNITS/3 ML VIAL SQ SCH (08:34)
[2016-09-19] MEDS: Lisinopril 20 MG TABLET PO SCH (08:34)
[2016-09-19 10:01] LABS: CK Total (Ck Isoenzymes) 65 U/L (20-200); CK-BB (CK isoenzymes) 0 % (0-0)
[2016-09-19 10:02] LABS: CK Total (Ck Isoenzymes) 49 U/L (20-200); CK-BB (CK isoenzymes) 0 % (0-0)
[2016-09-19 11:06] VITALS: BP 119/71
--- NOTE | 2016-09-19 11:19 | Discharge Summary ---
Date of Encounter: 09/19/16 Time of Encounter: 10:30 - Discharge Diagnosis (1) CHF exacerbation Priority: Primary Status: Acute Qualifiers: Congestive heart failure type: diastolic Qualified Code(s): I50.33 - Acute on chronic diastolic (congestive) heart failure (2) Acute exacerbation of chronic obstructive airways disease Priority: Primary Status: Acute (3) ELIZABETH on CPAP Priority: Primary Status: Acute (4) DM (diabetes mellitus), type 2 with renal complications Priority: Secondary Status: Chronic Qualifiers: Diabetes mellitus complication detail: with chronic kidney disease Chronic kidney disease stage: stage 3 (moderate) Qualified Code(s): E11.22 - Type 2 diabetes mellitus with diabetic chronic kidney disease; N18.3 - Chronic kidney disease, stage 3 (moderate); Z79.4 - long term acute care registered nurse (current) use of insulin (5) DVT prophylaxis Priority: Secondary Status: Acute (6) Hypertension Priority: Secondary Status: Acute Qualifiers: Hypertension type: essential hypertension Qualified Code(s): I10 - Essential (primary) hypertension - Discharge Medications Prescriptions: GuaiFENesin/Codeine [ROBITUSSIN w/CODEINE] 10 ml PO Q6HR 14 Days NIFEdipine XL (24 HR) [Procardia XL] 60 mg PO DAILY #30 tab.er.24 Home Medications: Albuterol Sulfate [Albuterol Inhaler] 2 puff IH Q4H PRN 03/26/15 [History] Allopurinol [Zyloprim 100 MG] 100 mg PO BID 03/26/15 [History] Atorvastatin [Lipitor] 20 mg PO HS 03/26/15 [History] Lisinopril [Zestril] 20 mg PO DAILY 03/26/15 [History] Metformin [Glucophage] 1,000 mg PO BIDWM 03/26/15 [History] Metoprolol [Lopressor] 50 mg PO BID 03/26/15 [History] Multivitamin/Iron/Folic Acid [Centrum Complete Multivit Tab] 1 each PO DAILY [History] Potassium Chloride 20 meq PO DAILY 03/26/15 [History] Pregabalin [Lyrica] 150 mg PO BID 03/26/15 [History] Oxycodone HCl/Acetaminophen [Percocet 7.5-325 mg Tablet] 1 each PO TID PRN 08/13 [History] Fluticasone/Salmeterol [Advair 250-50 Diskus] 1 each IH BID 09/15/16 [History] Furosemide [Lasix] 20 mg PO BID 09/15/16 [History] Tiotropium [Spiriva] 18 mcg IH DAILY 09/15/16 [History] Trazodone HCl 150 mg PO HS 09/15/16 [History] GuaiFENesin/Codeine [ROBITUSSIN w/CODEINE] 10 ml PO Q6HR 14 Days 09/19/16 [Rx] NIFEdipine XL (24 HR) [Procardia XL] 60 mg PO DAILY #30 tab.er.24 09/19/16 [Rx] Allergies/Adverse Reactions: Allergies acetaminophen [From Lortab] Adverse Reaction (Verified 08/13/16 13:51) Vomiting hydrocodone [From Lortab] Adverse Reaction (Verified 08/13/16 13:51) Vomiting morphine Adverse Reaction (Verified 08/13/16 13:51) Headache NSAIDS (Non-Steroidal Anti-Inflamma Adverse Reaction (Verified 08/13/16 13:51) Nausea - Notes to Outpatient Provider Pt's HTN is poorly controlled, nefidepine XL 60mg po daily was added to his med list, please f/u BP change. Date of admission: 09/15/16 18:10 Primary care physician: Rangel Puentes, Consults: 09/15/16 21:37 Consult to Occupational Therapy [CONS] Routine Comment: Evaluate, develop and implement POC Consult to Physical Therapy [CONS] Routine Comment: Evaluate, develop and implement POC Consult to Offset Second Press Operator [CONS] Routine Reason for SW Consult: Home care Discharging clinician: Ean Gregorio Anticipated date of discharge: 09/19/16 - Patient Status Disposition: Home, Self-Care Condition: Good Functional capacity at discharge: independent ambulation Overall status at discharge: patient is back to baseline - Discharge Instructions Follow Up With: Rangel Puentes, [Primary Care Provider] - 09/22/16 2:30 pm - Diet and Activity Activity: increase activity as tolerated Diet: diabetic diet, low salt diet Interval History: Mr. Beth is a 45 year old male with multiple medical problems including history of diastolic congestive heart failure, COPD not on home oxygen, obstructive sleep apnea on CPAP presents to the emergency room today with shortness of breath. Patient mentioned that his respiratory status has actually been declining for the past one month. He had just completed a course of prednisone 40 mg a day for 5 days and a week of antibiotic which he does not recall its name without any improvement in his symptoms. For the past 3 days he has been noticing progressive shortness of breath for he is unable to breathe rest, nonproductive cough chest wheezing. In addition patient has shortness of breath that worsens when he lays flat and bilateral lower extremity swelling. He denies any chest pain. He denies any fevers. He had a prior angiogram showing no conclusive coronary artery disease. patient continues to actively smoke affects cigarettes daily. Hospital course: Mr. Beth is a 45 year old male admitted for CHF and COPD exacerbation. He was treated with Abx, steroid, bronchodilator, and diuretics. After treatment, he is clinically improved. SOB resolved, wheezing resolved. He has uncontrolled HTN which was improved by adding nefidepine on his medication. He feels good and can be discharged to home, f/u with his PCP in one week. Pt was seen and examined. He is awake, alert, oriented x 3. In no acute respiratory distress. Cough symptoms has improved on robitussin AC. Vitals stable, lab reviewed unremarkable. Will d/c pt home today. He is very sensitive to steroid (hyperglycemia), will d/c po steroid. Resume his home meds. He was educated fluid restriction and low salt diet. He will f/u with PCP in one week. - Time Spent with Patient Total time spent providing and/or coordinating discharge services: 40 minutes. Greater than 30 minutes - Constitutional Vitals: Temp Pulse Resp BP Pulse Ox 97.7 F 53 16 119/71 96 09/19/16 11:04 09/19/16 11:04 09/19/16 11:04 09/19/16 11:04 09/19/16 11:04 General appearance: Present: A&O X 3, no acute distress, answers questions appropriately - Head Head exam: Present: atraumatic, normocephalic - Eye Eye exam: Present: PERRL, conjuntiva pink, sclera anicteric Pupils: Present: PERRL - Neck Neck exam general surgery: Present: supple, trachea midline. Absent: lymphadenopathy - Respiratory Respiratory exam: Present: CTAB. Absent: accessory muscle use, rales, rhonchi, wheezes - Cardiovascular Cardiovascular exam: Present: RRR, +S1, +S2. Absent: diastolic murmur, gallop, rubs, systolic murmur - GI/Abdominal GI/Abdominal exam: Present: normal bowel sounds, soft, no peritoneal signs. Absent: distended, tenderness - Extremities Exam Extremities exam: Present: warm, radial pulses palpable and symetrical. Absent : calf tenderness, cyanotic, pedal edema - Neurological Exam Neurological exam: Present: CN II-XII intact, oriented X3, no focal deficits. Absent: pronater drift, facial droop, speech deficit - Skin Skin exam: Present: dry, intact - VTE Documentation of Mechanical Device: Intermittent pneumatic compression device
== END 2016-09-19 13:18 | disposition home or self-care (01) ==
LOC: EMEROO 16:01 → 3BNU 16:01 → SUATTDRO 21:37
PROVIDERS: ADMIT Internal Medicine; ATTEND Internal Medicine

== ENCOUNTER 2017-09-25 14:49 | Inpatient (IN) ==
[2017-09-25] MEDS ORDERED: Ipratropium/Albuterol Neb 3 ML IH ONE (15:20)
[2017-09-25] MEDS ORDERED: methylPREDNISolone 125 MG/2 ML VIAL IVP ONE (15:22)
[2017-09-25] MEDS ORDERED: Levofloxacin 750 MG/150 ML 750 MG/150 ML BAG IVPB ONE (15:23)
--- NOTE | 2017-09-25 15:33 | Emergency Department Note ---
Disposition Clinical Impression: Acute exacerbation of chronic obstructive airways disease, Hypoxia Community acquired pneumonia Qualifiers: Laterality: unspecified laterality Qualified Code(s): J18.9 - Pneumonia, unspecified organism Disposition: Admitted As Inpatient Condition: Fair Referrals: Rangel Puentes DO [Primary Care Provider] - Forms: ED Satisfaction Letter Time of Disposition: 16:25 SOB HPI - General Chief Complaint: ED Shortness of Breath/Dyspnea Stated Complaint: ADELINE From Res Clinic Time Seen by Provider: 09/25/17 14:59 Source: patient Mode of arrival: ambulatory Limitations: no limitations Nursing Notes Reviewed: Yes Vital Signs Reviewed: Yes - History of Present Illness 46-year-old male history of COPD, hyperlipidemia, hypertension, CHF, presents plan of shortness of breath, history of COPD and CHF, [id number] diabetes, presents with shortness of breath for several days, he has had some fever and chills, productive cough. She reports increased wheezing, he has got oxygen at home that he uses as needed but has required more lately. Chest tightness 3/10. Patient denies hemoptysis denies unilateral leg swelling or history of DVT or PE. Pt Subjective Complaint: shortness of breath Onset (ago): minute(s) Severity: mild Consistency/Duration: constant Improves with: nothing Worsens with: nothing Known history of: COPD, asthma, congestive heart failure Associated symptoms: Reports: cough, wheezing. Denies: chest pain, pain with inspiration, sputum production, orthopnea, lower extremity pain, polydipsia, parasthesias, palpitations Treatment prior to arrival: none Cough present: Yes Cough Description: Voluntary Cough Frequency: Intermittent Sputum production: Yes Sputum Amount: Scant Sputum Color: Clear - Related Data Home Medications Medication Instructions Recorded Confirmed Albuterol Sulfate [Albuterol 2 puff IH Q4H PRN 03/26/15 09/25/17 Inhaler] Lisinopril [Zestril] 20 mg PO DAILY 03/26/15 09/25/17 Metoprolol [Lopressor] 50 mg PO BID 03/26/15 09/25/17 Multivitamin/Iron/Folic Acid 1 each PO DAILY 03/26/15 09/25/17 [Centrum Complete Multivit Tab] Potassium Chloride 20 meq PO DAILY 03/26/15 09/25/17 Pregabalin [Lyrica] 150 mg PO BID 03/26/15 09/25/17 Fluticasone/Salmeterol [Advair 1 each IH BID 09/15/16 09/25/17 250-50 Diskus] Tiotropium [Spiriva] 18 mcg IH DAILY 09/15/16 09/25/17 Trazodone HCl 150 mg PO HS 09/15/16 09/25/17 Allopurinol [Zyloprim] 300 mg PO DAILY 09/25/17 09/25/17 Atorvastatin Calcium [Lipitor] 20 mg PO HS 09/25/17 09/25/17 Fluticasone/Vilanterol [Breo 1 each IH DAILY 09/25/17 09/25/17 Ellipta 100-25 Mcg INH] Furosemide [Lasix] 40 mg PO BID 09/25/17 09/25/17 Morphine Sulfate/Naltrexone 1 each PO BID 09/25/17 09/25/17 [Embeda ER 30-1.2 mg Capsule] Omeprazole [PriLOSEC] 20 mg PO DAILY 09/25/17 09/25/17 OxyCODONE/APAP 10/325 [Percocet 1 each PO Q6H PRN 09/25/17 09/25/17 10/325 MG] Sertraline [Zoloft] 100 mg PO DAILY 09/25/17 09/25/17 Allergies Allergy/AdvReac Type Severity Reaction Status Date / Time hydrocodone [From Lortab] AdvReac Vomiting Verified 10/29/16 15:08 morphine AdvReac Headache Verified 10/29/16 15:08 NSAIDS (Non-Steroidal AdvReac Nausea Verified 10/29/16 15:08 Anti-Inflamma All systems ED: reviewed and negative except as stated. Review of Systems: As Per HPI Constitutional: Reports: fever, chills Eyes: Denies: eye pain ENT ED: Denies: ear pain, throat pain Cardiovascular: Reports: as per HPI, chest pain Respiratory: Reports: as per HPI, cough, dyspnea, wheezes. Denies: hemoptysis Gastrointestinal: Denies: abdominal pain Genitourinary: Denies: urgency, dysuria Musculoskeletal: Denies: back pain Integumentary: Denies: rash Psychiatric: Denies: anxiety Past Medical History - Past Medical History Attestation: Yes The following information was validated with the patient. Source: patient Medical history: Reports: asthma, CHF, COPD, diabetes, hyperlipidemia, hypertension, kidney stones, renal disease, other Surgical history: Reports: other Psychiatric history: Reports: anxiety, depression, panic disorder, PTSD - Social History Smoking Status: Light tobacco smoker Smokeless Tobacco Status: No Alcohol use: Reports: none Drug use: Reports: none Physical Exam Constitutional: Middle-aged male in mild respiratory distress satting 88% on room air, 95% on 2 L Neck: normal inspection, neck is supple, no JVD Resp: Diffuse inspiratory and expiratory wheezes, decreased respiratory excursion and increased accessory muscles CV: Sinus bradycardia, no murmurs/gallops/rubs, S1 and S2 heard Extremity: +2 bilateral radial and posterial tibial pulses, no pedal edema GI: normal inspection, Soft, NTND, no peritoneal signs, no palpable abdominal aortic aneurysm Back: normal inspection, no tenderness to palpation Neuro: A&O3, no gross motor or sensory deficits bilaterally MSK: normal inspection, bilateral UE and LE with normal ROM Skin: No rashes, skin warm, dry, intact - General Limitations: no limitations General appearance: alert Course Course Narrative: 46-year-old male with shortness of breath, concern for COPD exacerbation, patient appeared hypoxic was placed on nasal cannula, given more do nebs and breathing treatments, he was sent from the residency clinic and the plan was already for admission to the hospitalist Dr. Mahoney, Dr. Ambrocio come down to the bedside and evaluate the patient as well. Plan is for Levaquin, basic labs CBC BMP to, lactated blood cultures. - Reevaluation(s) Reevaluation #1: After evaluation, the patient has no elevation in troponin, he had a mild EKG depression, was given aspirin, also some duo nebs 3, slightly Medrol, eloquent started for community acquired pneumonia possibility, with bilateral infiltrates on x-ray, admitted to the hospital service Lian atkins. Time: 16:25 Vital Signs Temperature 97.9 F 09/25/17 14:51 Pulse Rate 52 09/25/17 14:51 Respiratory Rate 20 09/25/17 14:51 Blood Pressure 136/83 09/25/17 14:51 O2 Sat by Pulse Oximetry 88 09/25/17 14:51 Temperature 97.9 F 09/25/17 14:51 Pulse Rate 56 09/25/17 16:03 Respiratory Rate 18 09/25/17 16:03 Blood Pressure 132/76 09/25/17 16:03 O2 Sat by Pulse Oximetry 99 09/25/17 16:03 Oxygen Delivery Oxygen Delivery Aerosol Mask Shortness of Breath/Dyspnea - Differential Diagnosis Likely: acute exacerbation of chronic obstructive airways disease, congestive heart failure - Medical Records Medical records reviewed: Yes I reviewed the patient's medical records. - Lab Data Lab results reviewed: Yes I reviewed the patient's lab results. Result diagrams: 09/25/17 15:31 09/25/17 15:31 Lab Results 09/25/17 09/25/17 09/25/17 Range/Units 15:31 15:31 15:31 WBC 10.5 (4.3-11.1) K/mcL RBC 5.44 (4.19-5.50) M/mcL Hgb 14.4 (12.9-16.9) g/dL Hct 43.6 (37.5-50.1) % MCV 80.1 L (83.0-100.0) fL MCH 26.5 L (28.0-33.3) pg MCHC 33.0 (31.6-35.5) g/dL RDW 14.9 H (11.5-14.5) % Plt Count 269 (140-400) K/mcL MPV 10.9 (9.4-12.4) fL Immature Gran % 1.5 (0-4) % Seg Neutrophils % 71.0 % Lymphocytes % 14.3 % Monocytes % 8.2 % Eosinophils % 4.2 % Basophils % 0.8 % Neutrophils # 7.4 (1.6-8.9) K/mcL Lymphocytes # 1.5 (0.6-4.6) K/mcL Monocytes # 0.9 (0.0-1.3) K/mcL Eosinophils # 0.4 (0.0-0.6) K/mcL Basophils # 0.1 (0.0-0.2) K/mcL Sodium 139 (136-145) mEq/L Potassium 3.3 L (3.5-5.1) mEq/L Chloride 105 (98-107) mEq/L Carbon Dioxide 30 H (23-29) mEq/L BUN 14 (6-20) mg/dL Creatinine 0.98 (0.70-1.30) mg/dL Est GFR ( Amer) > 60 (> 60) Est GFR (Non-Af Amer) > 60 (> 60) BUN/Creatinine Ratio 14 (6-26) Glucose 89 (70-105) mg/dL Calculated Osmolality 288 (280-300) Calcium 9.3 (8.6-10.3) mg/dL Troponin I < 0.03 (< 0.04) ng/mL B-Natriuretic Peptide (Less than 100) pg/mL 09/25/17 Range/Units 15:31 WBC (4.3-11.1) K/mcL RBC (4.19-5.50) M/mcL Hgb (12.9-16.9) g/dL Hct (37.5-50.1) % MCV (83.0-100.0) fL MCH (28.0-33.3) pg MCHC (31.6-35.5) g/dL RDW (11.5-14.5) % Plt Count (140-400) K/mcL MPV (9.4-12.4) fL Immature Gran % (0-4) % Seg Neutrophils % % Lymphocytes % % Monocytes % % Eosinophils % % Basophils % % Neutrophils # (1.6-8.9) K/mcL Lymphocytes # (0.6-4.6) K/mcL Monocytes # (0.0-1.3) K/mcL Eosinophils # (0.0-0.6) K/mcL Basophils # (0.0-0.2) K/mcL Sodium (136-145) mEq/L Potassium (3.5-5.1) mEq/L Chloride (98-107) mEq/L Carbon Dioxide (23-29) mEq/L BUN (6-20) mg/dL Creatinine (0.70-1.30) mg/dL Est GFR ( Amer) (> 60) Est GFR (Non-Af Amer) (> 60) BUN/Creatinine Ratio (6-26) Glucose (70-105) mg/dL Calculated Osmolality (280-300) Calcium (8.6-10.3) mg/dL Troponin I (< 0.04) ng/mL B-Natriuretic Peptide 138 H (Less than 100) pg/mL - Radiology Data Radiology results reviewed: Yes I reviewed the patient's radiology results. Chest X-Ray 09/25/17 14:59 IMPRESSION: Bilateral interstitial infiltrates could represent atypical pneumonia or possibly pulmonary edema D/ / 09/25/2017 15:25:50 Rangel Price MD / elisa Interpreting Provider: Rangel Price MD - EKG Data EKG attestation: Yes I reviewed and interpreted this EKG. EKG shows normal: Reports: sinus rhythm Rate: Reports: bradycardia Rhythm: Reports: NSR [place]/QRS: Reports: normal Q waves: Reports: v2, v3, v4, v5 T wave inversions noted in: Reports: v2, v3, v4, v5 Interpretation: Reports: nonspecific ST-T wave changes - Core Measures AMI Core Measures Followed: No Attestation Statement - Attestation Attestation: I, Jef Viramontes DO, examined this patient [id number] and my medical decision-making was reviewed with Dr. Daniel Garber, Resident Physician. I agree with the documented findings, disposition and treatment plan as described except to the extent set forth below. Please see my progress notes for details. 46-year-old male presents to emergency room complaining of shortness of breath. He was seen at the residency clinic today and evaluated by his primary care provider. They recommended admission. This process has been established at this time. Primary medical provider by the patient in the emergency room establish inpatient management. Chest x-ray EKG labs will be completed in the ED as well as an influenza swab. Once this was completed patient will be admitted. Currently he has coarse sounding wheezes bilaterally. Heart is regular. Abdomen soft. No acute signs of cardiac related disease. Consider zone for COPD. Patient also describes some generalized malaise and fevers at home. Currently denying any other symptoms at this time. Patient denied any chest pain fevers chills nausea vomiting diarrhea headache or vision change Coming in. The main complaint is shortness of breath. Patient will be admitted for definitive management of this time once the workup is completed. See detailed documentation of the physical exam, medical intervention, medical decision-making and disposition and the resident physician's note. No critical care provider this patient's treatment course. Antibiotic regimen will be started at the request of the primary care provider.
[2017-09-25 15:45] LABS: Basophils # 0.1 K/mcL (0.0-0.2); Basophils % 0.8 %; Eosinophils # 0.4 K/mcL (0.0-0.6); Eosinophils % 4.2 %; Hematocrit 43.6 % (37.5-50.1); Hemoglobin 14.4 g/dL (12.9-16.9); Immature Granulocytes % 1.5 % (0-4); Lymphocytes # 1.5 K/mcL (0.6-4.6); Lymphocytes % 14.3 %; Mean Corpuscular Hemoglobin 26.5 pg (28.0-33.3); Mean Corpuscular Volume 80.1 fL (83.0-100.0); Mean Platelet Volume 10.9 fL (9.4-12.4); Monocytes # 0.9 K/mcL (0.0-1.3); Monocytes % 8.2 %; Neutrophils # 7.4 K/mcL (1.6-8.9); Platelet Count 269 K/mcL (140-400); Red Blood Count 5.44 M/mcL (4.19-5.50); Red Cell Distribution Width 14.9 % (11.5-14.5)
[2017-09-25] MEDS: Aspirin 81 MG TAB.CHEW PO SCH (15:57)
[2017-09-25 15:59] LABS: BUN/Creatinine Ratio 14 (6-26); Blood Urea Nitrogen 14 mg/dL (6-20); Calcium 9.3 mg/dL (8.6-10.3); Carbon Dioxide 30 mEq/L (23-29); Chloride 105 mEq/L (98-107); Glucose 89 mg/dL (70-105); Osmolality,Calculated 288 (280-300); Potassium 3.3 mEq/L (3.5-5.1); Sodium 139 mEq/L (136-145); eGFR For African Americans > 60 (> 60); eGFR For Non-African Americans > 60 (> 60)
[2017-09-25] MEDS ORDERED: Naloxone 0.4 MG/ML INJ IVP PRN (16:33)
[2017-09-25] MEDS ORDERED: Acetaminophen 325 MG TABLET PO PRN (16:33)
[2017-09-25] MEDS ORDERED: Potassium Chloride Elixir 20 MEQ/15 ML UDC PO ONE (16:39)
[2017-09-25] MEDS: *HR* OxyCODONE/APAP 10/325 TABLET PO PRN ×2 (17:39→23:44)
--- NOTE | 2017-09-25 17:48 | Internal Med History&Physical ---
<Rangel Puentes Muna - Last Filed: 09/25/17 17:45> Date of Encounter: 09/25/17 Time of Encounter: 17:45 Assessment and Plan (1) Acute respiratory failure with hypoxia Current visit: Yes Status: Acute Patient hypoxic on arrival to the emergency department. Secondary to acute exacerbation of COPD in the setting of likely viral upper respiratory infection. Continue supplemental oxygen to keep oxygen above 88%. (2) Acute exacerbation of chronic obstructive pulmonary disease (COPD) Current visit: Yes Status: Acute Secondary to likely viral upper respiratory infection. Patient did have increased opacification of the left lower lobe on chest x-ray with diffuse rhonchi. We will treat with scheduled bronchodilators and when necessary DuoNeb nebs in between, Solu-Medrol 60 mg IV every 6 hours, Levaquin 750 mg daily. Continue supplemental oxygen as discussed above. (3) Hypokalemia Current visit: Yes Status: Acute Potassium slightly low on presentation, likely related to chronic diuretic use. We will supplement with potassium chloride 40 mEq once and continue his home by mouth potassium (4) Heart failure with preserved ejection fraction Current visit: No Status: Chronic Stable. No evidence of acute exacerbation. Continue home Lasix. (5) PTSD (post-traumatic stress disorder) Current visit: No Status: Chronic Stable. Recent inpatient psychiatric hospitalization. No acute symptoms. Continue home medications. (6) ELIZABETH on CPAP Current visit: No Status: Acute Continue CPAP at night (7) Hypertension Current visit: Yes Status: Chronic Mildly hypertensive, likely related to acute exacerbation of COPD. Continue home medications. Qualifiers: Hypertension type: essential hypertension Qualified Code(s): I10 - Essential (primary) hypertension (8) DVT prophylaxis Current visit: Yes Status: Acute Lovenox 40 mg subcutaneous daily Internal Medicine - H&P: HPI Chief complaint: Dyspnea Admitted From: Emergency Dept Plans for Post Hospital Care: Home History of present illness: Mr. Beth is a 46 year old male with history of COPD, CHF, hypertension, chronic pain who presented with shortness of breath. Patient was seen in the outpatient office where he was acutely dyspneic with complaints of cough and wheezing. Patient states the symptoms have been going on for approximately a week after he was released from an inpatient psych facility where he reports being exposed to a patient with the flu. He had progressive worsening of her shortness of breath that was particularly worse with exertion, feeling of tightness in his chest that was worse with deep breath and cough. Worsening of cough with difficulty producing sputum. He has attempted to treat himself at home with inhalers and nebulizers but this did not resolve his symptoms. He reports subjective fever at home but did not measure his temperature. He states this feels similar to his previous COPD exacerbations. He denies lower extremity swelling, orthopnea. Past Med Surg Social Fam HX - Past Medical History Medical history: asthma, CHF, COPD, diabetes, hyperlipidemia, hypertension, kidney stones, renal disease, other Psychiatric history: anxiety, depression, panic disorder, PTSD - Past Surgical History Surgical History: other - Social History Smoking Status: Light tobacco smoker Smokeless Tobacco Status: No Alcohol use: none Drug use: none - Family History Mother Living Status: Father Living Status: Hx Family Cardiac Disorders: Yes Internal Medicine - H&P: Meds Albuterol Sulfate [Albuterol Inhaler] 2 puff IH Q4H PRN 03/26/15 [History] Lisinopril [Zestril] 20 mg PO DAILY 03/26/15 [History] Metoprolol [Lopressor] 50 mg PO BID 03/26/15 [History] Multivitamin/Iron/Folic Acid [Centrum Complete Multivit Tab] 1 each PO DAILY [History] Potassium Chloride 20 meq PO DAILY 03/26/15 [History] Pregabalin [Lyrica] 150 mg PO BID 03/26/15 [History] Fluticasone/Salmeterol [Advair 250-50 Diskus] 1 each IH BID 09/15/16 [History] Tiotropium [Spiriva] 18 mcg IH DAILY 09/15/16 [History] Trazodone HCl 150 mg PO HS 09/15/16 [History] Allopurinol [Zyloprim] 300 mg PO DAILY 09/25/17 [History] Atorvastatin Calcium [Lipitor] 20 mg PO HS 09/25/17 [History] Fluticasone/Vilanterol [Breo Ellipta 100-25 Mcg INH] 1 each IH DAILY 09/25/17 [ History] Furosemide [Lasix] 40 mg PO BID 09/25/17 [History] Morphine Sulfate/Naltrexone [Embeda ER 30-1.2 mg Capsule] 1 each PO BID [History] Omeprazole [PriLOSEC] 20 mg PO DAILY 09/25/17 [History] OxyCODONE/APAP 10/325 [Percocet 10/325 MG] 1 each PO Q6H PRN 09/25/17 [History] Sertraline [Zoloft] 100 mg PO DAILY 09/25/17 [History] 3 Allergy/AdvReac Type Severity Reaction Status Date / Time hydrocodone [From Lortab] AdvReac Vomiting Verified 10/29/16 15:08 morphine AdvReac Headache Verified 10/29/16 15:08 NSAIDS (Non-Steroidal AdvReac Nausea Verified 10/29/16 15:08 Anti-Inflamma All Systems PM: A 10-system review of systems was performed and is negative for pertinent findings except as documented above in the HPI. - Constitutional Constitutional: chills, fever(s), weakness - EENT Eyes: no blurry vision Nose, mouth and throat: no sinus pain, no sinus pressure, no sore throat - Cardiovascular Cardiovascular ROS IM: chest pain, dyspnea, dyspnea on exertion, no edema, no orthopnea, no palpitations, no paroxysmal nocturnal dyspnea, no syncope - Respiratory Respiratory: cough, dyspnea, dyspnea on exertion, wheezing, pain on inspiration , chest congestion, change in phlegm color, pain with cough, no hemoptysis, no excessive phlegm production - Gastrointestinal Gastrointestinal: no abdominal pain, no diarrhea, no nausea, no vomiting - Genitourinary Genitourinary ROS male: no dysuria - Musculoskeletal Musculoskeletal ROS IM: muscle weakness, no numbness, no tingling - Integumentary Integumentary IM: no rash - Neurological Neurological ROS: weakness, no dizziness, no numbness - Psychiatric Psychiatric: depression, no anxiety - Endocrine Endocrine IM: no polyuria - Constitutional Vitals: Temp Pulse Resp BP Pulse Ox 98.5 F 59 16 147/98 92 09/25/17 17:39 09/25/17 17:39 09/25/17 17:39 09/25/17 17:39 09/25/17 17:39 General appearance: Present: mild distress (Conversational dyspnea), A&O X 3 - Head Head exam: Present: atraumatic, normal inspection, normocephalic - ENT ENT exam: Present: mucous membranes moist - Neck Neck exam general surgery: Present: supple - Respiratory Respiratory exam: Present: accessory muscle use, respiratory distress (Mild), rhonchi, wheezes, tachypnea - Cardiovascular Cardiovascular exam: Present: bradycardia. Absent: gallop, rubs, systolic murmur - GI/Abdominal GI/Abdominal exam: Present: normal bowel sounds, soft. Absent: distended, tenderness - Extremities Exam Extremities exam: Present: warm. Absent: pedal edema, tenderness - Neurological Exam Neurological exam: Present: alert, CN II-XII intact, oriented X3, no focal deficits - Psychiatric Psychiatric exam: Present: normal affect, normal mood Internal Med - H&P Results - Labs CBC & Chem 7: 09/25/17 15:31 09/25/17 15:31 <Oli Mahoney - Last Filed: 09/25/17 19:17> Date of Encounter: 09/25/17 Assessment and Plan (1) Acute respiratory failure with hypoxia Current visit: Yes Status: Acute (2) Acute exacerbation of chronic obstructive pulmonary disease (COPD) Current visit: Yes Status: Acute (3) Hypertension Current visit: Yes Status: Chronic Qualifiers: Hypertension type: essential hypertension Qualified Code(s): I10 - Essential (primary) hypertension (4) Hypokalemia Current visit: Yes Status: Acute (5) ELIZABETH on CPAP Current visit: No Status: Acute (6) Diastolic heart failure Current visit: Yes Status: Chronic Qualifiers: Heart failure chronicity: chronic Qualified Code(s): I50.32 - Chronic diastolic (congestive) heart failure Internal Medicine - H&P: HPI History of present illness: Mr. Beth is a 46 year old male All Systems PM: A 10-system review of systems was performed and is negative for pertinent findings except as documented above in the HPI. - Constitutional Vitals: Temp Pulse Resp BP Pulse Ox 98.5 F 59 16 147/98 92 09/25/17 17:39 09/25/17 17:39 09/25/17 17:39 09/25/17 17:39 09/25/17 17:39 Internal Med - H&P Results - Labs CBC & Chem 7: 09/25/17 15:31 09/25/17 15:31 - Attending Attestation I examined this patient and my medical decision-making was reviewed with the Resident Physician on 09/25/17. I agree with the documented findings, disposition and treatment plan as described except to the extent set forth below. Mr Beth is 46 year old male with hx COPD presented to outpatient office with severe dyspnea. He was sent to ED for evaluation. He was found to have COPD exac and subsequently admitted. He is still dyspneic but a little better. Exam alert. Mild resp distress Heart reg Lungs with diffuse end exp wheeze Abd soft No edema I/P 1. Hypoxia 2. COPD Further diagnoses and plan as above.
[2017-09-25] MEDS ORDERED: Ipratropium/Albuterol Neb 3 ML IH PRN (18:00)
[2017-09-25] MEDS: Ipratropium/Albuterol Neb 3 ML IH SCH ×2 (19:16→23:47)
[2017-09-25 19:50] LABS: Adenovirus Not Detected (Not Detect); Coronavirus 229E Not Detected (Not Detect); Coronavirus HKU1 Not Detected (Not Detect); Coronavirus NL63 Not Detected (Not Detect); Coronavirus OC43 Not Detected (Not Detect); Human Metapneumovirus Not Detected (Not Detect); Human Rhinovirus/Enterovirus Not Detected (Not Detect)
[2017-09-25 19:51] LABS: Bordetella Pertussis Not Detected (Not Detect); Chlamydophila pneumoniae Not Detected (Not Detect); Influenza A Subtype 2009 H1 Not Detected (Not Detect); Influenza A Untypeable Not Detected (Not Detect); Influenza B Not Detected (Not Detect); Mycoplasma pneumoniae Not Detected (Not Detect); Parainfluenza Virus 1 Not Detected (Not Detect); Parainfluenza Virus 2 Not Detected (Not Detect); Parainfluenza Virus 3 Not Detected (Not Detect); Parainfluenza Virus 4 Not Detected (Not Detect); Respiratory Syncytial Virus ***DETECTED*** (Not Detect)
[2017-09-25] MEDS: Furosemide 40 MG TABLET PO SCH (21:31)
[2017-09-25] MEDS: Pregabalin 75 MG CAPSULE PO SCH (21:32)
[2017-09-25] MEDS: *HR* Morphine Sulfate SR (12 HR) 30 MG TABLET.ER PO SCH (21:34)
[2017-09-25] MEDS: methylPREDNISolone 125 MG/2 ML VIAL IVP SCH (21:34)
[2017-09-25] MEDS: traZODone 50 MG TABLET PO PRN (21:41)
[2017-09-25] MEDS ORDERED: D5% in Water 1,000 ML IVC PRN (21:56)
[2017-09-25] MEDS ORDERED: Dextrose Gel 15 GM/37.5 ML TUBE PO PRN ×2 (21:56)
[2017-09-25] MEDS ORDERED: *HR* Dextrose 50 % in Water (Syg) 50 ML SYRINGE IVP PRN (21:56)
[2017-09-25] MEDS: Insulin LISPRO 300 UNITS/3 ML VIAL SQ SCH (22:31)
[2017-09-26] MEDS: methylPREDNISolone 125 MG/2 ML VIAL IVP SCH ×3 (03:25→20:05)
[2017-09-26 03:48] LABS: Basophils % 0.5 %; Hematocrit 45.1 % (37.5-50.1); Hemoglobin 14.6 g/dL (12.9-16.9); Immature Granulocytes % 1.7 % (0-4); Lymphocytes # 0.4 K/mcL (0.6-4.6); Lymphocytes % 4.6 %; Mean Corpuscular HGB Conc 32.4 g/dL (31.6-35.5); Mean Corpuscular Volume 83.4 fL (83.0-100.0); Mean Platelet Volume 10.9 fL (9.4-12.4); Monocytes # 0.1 K/mcL (0.0-1.3); Monocytes % 0.9 %; Platelet Count 229 K/mcL (140-400); Red Blood Count 5.41 M/mcL (4.19-5.50); Red Cell Distribution Width 14.8 % (11.5-14.5); Segmented Neutrophils % 92.3 %
[2017-09-26 03:57] LABS: BUN/Creatinine Ratio 17 (6-26); Blood Urea Nitrogen 18 mg/dL (6-20); Calcium 9.3 mg/dL (8.6-10.3); Carbon Dioxide 25 mEq/L (23-29); Chloride 104 mEq/L (98-107); Glucose 286 mg/dL (70-105); Magnesium 1.9 mg/dL (1.6-2.6); Osmolality,Calculated 294 (280-300); Sodium 136 mEq/L (136-145); eGFR For African Americans > 60 (> 60); eGFR For Non-African Americans > 60 (> 60)
[2017-09-26] MEDS: Ipratropium/Albuterol Neb 3 ML IH SCH ×6 (04:25→23:24)
[2017-09-26] MEDS: *HR* Enoxaparin 40 MG/0.4 ML SYRINGE SQ SCH (06:11)
[2017-09-26] MEDS: Lisinopril 20 MG TABLET PO SCH (08:41)
[2017-09-26] MEDS: Furosemide 40 MG TABLET PO SCH ×2 (08:41→20:11)
[2017-09-26] MEDS: *HR* Morphine Sulfate SR (12 HR) 30 MG TABLET.ER PO SCH ×2 (08:41→20:11)
[2017-09-26] MEDS: Pregabalin 75 MG CAPSULE PO SCH ×2 (08:41→20:12)
[2017-09-26] MEDS: Insulin LISPRO 300 UNITS/3 ML VIAL SQ SCH ×4 (08:41→21:27)
[2017-09-26] MEDS: Aspirin 81 MG TAB.CHEW PO SCH (08:41)
[2017-09-26] MEDS: (Fluticasone/Vilanterol [Breo Ellipta 100-25 Mcg Inh] IH SCH (08:42)
[2017-09-26] MEDS: *HR* OxyCODONE/APAP 10/325 TABLET PO PRN ×3 (10:14→23:26)
--- NOTE | 2017-09-26 10:31 | Internal Med Progress Note ---
<Rangel Puentes - Last Filed: 09/26/17 10:28> Date of Encounter: 09/26/17 Time of Encounter: 10:28 - Assessment and plan (1) Acute respiratory failure with hypoxia Current Visit: Yes Status: Acute Assessment and plan: Secondary to acute exacerbation of COPD. Much improved, patient is maintaining his oxygen saturation above 88% on room air. Continue to use oxygen supplementation only if oxygen saturation is less than 88%. (2) Acute exacerbation of chronic obstructive pulmonary disease (COPD) Current Visit: Yes Status: Acute Assessment and plan: Patient clinically much better. Secondary to RSV. On exam patient's rhonchi and wheezes are much improved although there are still occasional scattered end expiratory wheezes. We will decrease steroids to Solu-Medrol 60 mg IV every 12 with plan for possible transition to by mouth tomorrow. Continue scheduled bronchodilators. Continue antibiotics for now, patient continues to improve we will discontinue. (3) RSV (respiratory syncytial virus infection) Current Visit: Yes Status: Acute Assessment and plan: PCR positive, likely resulting patient's acute COPD exacerbation as above. Continue supportive therapy. (4) Hypokalemia Current Visit: Yes Status: Acute Assessment and plan: Resolved with supplementation. Continue daily potassium supplementation. (5) Heart failure with preserved ejection fraction Current Visit: No Status: Chronic Assessment and plan: Stable. No evidence of exacerbation. Continue home medications. We will restart beta moises with holding parameters. (6) PTSD (post-traumatic stress disorder) Current Visit: No Status: Chronic Assessment and plan: Stable. Continue home medication. (7) ELIZABETH on CPAP Current Visit: No Status: Acute Assessment and plan: Continue CPAP at night. (8) Hypertension Current Visit: Yes Status: Chronic Assessment and plan: Patient slightly hypertensive, we will restart home metoprolol. Continue to monitor. Qualifiers: Hypertension type: essential hypertension Qualified Code(s): I10 - Essential (primary) hypertension (9) DVT prophylaxis Current Visit: Yes Status: Acute Assessment and plan: Continue Lovenox subcutaneous 40 mg daily. - Subjective Interval history: Patient seen and examined at bedside. Patient states that he feels much better today. He feels like he is moving air better. He continues to cough but is not having production. He denies fever, chills, chest pain. - Constitutional Vitals: Temp Pulse Resp BP Pulse Ox 97.7 F 66 18 156/77 91 09/26/17 08:15 09/26/17 08:15 09/26/17 08:15 09/26/17 08:15 09/26/17 08:15 General appearance: Present: A&O X 3, no acute distress - Respiratory Respiratory exam: Present: rhonchi (Mild, much improved), wheezes (Trace, end expiratory, much improved). Absent: respiratory distress, tachypnea - Cardiovascular Cardiovascular exam: Present: bradycardia. Absent: gallop, irregular rhythm, rubs, systolic murmur - GI/Abdominal GI/Abdominal exam: Present: soft. Absent: distended, tenderness - Extremities Exam Extremities exam: Present: warm. Absent: pedal edema, tenderness - Neurological Exam Neurological exam: Present: alert, CN II-XII intact, oriented X3, no focal deficits Internal Medicine: Result - Labs CBC & Chem 7: 09/26/17 02:20 09/26/17 02:20 Labs: Short CBC 09/26/17 Range/Units 02:20 WBC 8.7 (4.3-11.1) K/mcL Hgb 14.6 (12.9-16.9) g/dL Hct 45.1 (37.5-50.1) % Plt Count 229 (140-400) K/mcL Neutrophils # 8.0 (1.6-8.9) K/mcL BMP 09/26/17 02:20 Sodium 136 Potassium 4.0 Chloride 104 Carbon Dioxide 25 BUN 18 Creatinine 1.09 Glucose 286 H Calcium 9.3 Cardiac Enzymes 09/25/17 09/26/17 Range/Units 21:16 02:20 Troponin I < 0.03 < 0.03 (< 0.04) ng/mL Consult Discharge Plan - Plan Referrals: Rangel Puentes, [Primary Care Provider] - 10/16/17 2:00 pm <Oli Mahoney - Last Filed: 09/26/17 18:36> Date of Encounter: 09/26/17 - Assessment and plan (1) Acute respiratory failure with hypoxia Current Visit: Yes Status: Acute (2) Acute exacerbation of chronic obstructive pulmonary disease (COPD) Current Visit: Yes Status: Acute (3) RSV (respiratory syncytial virus infection) Current Visit: Yes Status: Acute (4) Hypertension Current Visit: Yes Status: Chronic Qualifiers: Hypertension type: essential hypertension Qualified Code(s): I10 - Essential (primary) hypertension (5) Hypokalemia Current Visit: Yes Status: Acute (6) ELIZABETH on CPAP Current Visit: No Status: Acute (7) Diastolic heart failure Current Visit: Yes Status: Chronic Qualifiers: Heart failure chronicity: chronic Qualified Code(s): I50.32 - Chronic diastolic (congestive) heart failure - Constitutional Vitals: Temp Pulse Resp BP Pulse Ox 98.0 F 68 16 131/66 94 09/26/17 15:47 09/26/17 15:47 09/26/17 15:47 09/26/17 15:47 09/26/17 15:47 Internal Medicine: Result - Labs CBC & Chem 7: 09/26/17 02:20 09/26/17 02:20 Labs: Short CBC 09/26/17 Range/Units 02:20 WBC 8.7 (4.3-11.1) K/mcL Hgb 14.6 (12.9-16.9) g/dL Hct 45.1 (37.5-50.1) % Plt Count 229 (140-400) K/mcL Neutrophils # 8.0 (1.6-8.9) K/mcL BMP 09/26/17 02:20 Sodium 136 Potassium 4.0 Chloride 104 Carbon Dioxide 25 BUN 18 Creatinine 1.09 Glucose 286 H Calcium 9.3 Cardiac Enzymes 09/25/17 09/26/17 Range/Units 21:16 02:20 Troponin I < 0.03 < 0.03 (< 0.04) ng/mL - Attending Attestation I examined this patient and my medical decision-making was reviewed with the Resident Physician on 09/26/17. I agree with the documented findings, disposition and treatment plan as described except to the extent set forth below. Mr Beth is currently in observation for hypoxia and acute COPD. He is RSV positive. Mr Beth is resting comfortably. He is somewhat improved today. No fever or chills. Still with some wheeze. Exam Alert. Comfortable Mucus membranes dry Heart reg Still with end exp wheeze I/P 1. Hypoxia 2. COPD 3. RSV Further diagnoses and plan as above Possible d/c tomorrow.
[2017-09-26] MEDS ORDERED: Levofloxacin 750 MG/150 ML 750 MG/150 ML BAG IVPB SCH (15:00)
[2017-09-26] MEDS: traZODone 50 MG TABLET PO PRN (23:25)
[2017-09-27] MEDS: Ipratropium/Albuterol Neb 3 ML IH SCH ×6 (03:45→23:33)
[2017-09-27] MEDS: *HR* Enoxaparin 40 MG/0.4 ML SYRINGE SQ SCH (05:58)
[2017-09-27] MEDS: Insulin LISPRO 300 UNITS/3 ML VIAL SQ SCH ×4 (08:14→20:55)
[2017-09-27] MEDS: methylPREDNISolone 125 MG/2 ML VIAL IVP SCH ×2 (08:14→19:40)
[2017-09-27] MEDS: *HR* Morphine Sulfate SR (12 HR) 30 MG TABLET.ER PO SCH ×2 (08:15→20:55)
[2017-09-27] MEDS: Lisinopril 20 MG TABLET PO SCH (08:15)
[2017-09-27] MEDS: Aspirin 81 MG TAB.CHEW PO SCH (08:15)
[2017-09-27] MEDS: Pregabalin 75 MG CAPSULE PO SCH ×2 (08:15→20:55)
[2017-09-27] MEDS: (Fluticasone/Vilanterol [Breo Ellipta 100-25 Mcg Inh] IH SCH (08:15)
[2017-09-27] MEDS: Furosemide 40 MG TABLET PO SCH ×2 (08:15→20:55)
[2017-09-27] MEDS: *HR* OxyCODONE/APAP 10/325 TABLET PO PRN ×2 (12:03→18:07)
--- NOTE | 2017-09-27 14:54 | Internal Med Progress Note ---
<EhRangel mcrae - Last Filed: 09/27/17 14:51> Date of Encounter: 09/27/17 Time of Encounter: 14:52 - Assessment and plan (1) Acute respiratory failure with hypoxia Current Visit: Yes Status: Resolved Assessment and plan: Secondary to acute exacerbation of COPD. Much improved, patient is maintaining his oxygen saturation above 88% on room air. Continue to use oxygen supplementation only if oxygen saturation is less than 88%. (2) Acute exacerbation of chronic obstructive pulmonary disease (COPD) Current Visit: Yes Status: Acute Assessment and plan: Patient clinically much better. Secondary to RSV. On exam patient's rhonchi has resolved and wheezes continue to improve although there are still rare scattered end expiratory wheezes. We will continue steroids to Solu-Medrol 60 mg IV every 12h today and transition to by mouth tomorrow. Continue scheduled bronchodilators. Antibiotics have been discontinued. (3) RSV (respiratory syncytial virus infection) Current Visit: Yes Status: Acute Assessment and plan: PCR positive, likely resulting patient's acute COPD exacerbation as above. Continue supportive therapy. (4) Hypokalemia Current Visit: Yes Status: Resolved Assessment and plan: Resolved with supplementation. Continue daily potassium supplementation. (5) Heart failure with preserved ejection fraction Current Visit: No Status: Chronic Assessment and plan: Stable. No evidence of exacerbation. Continue home medications. We will restart beta moises with holding parameters. (6) PTSD (post-traumatic stress disorder) Current Visit: No Status: Chronic Assessment and plan: Stable. Continue home medication. (7) ELIZABETH on CPAP Current Visit: No Status: Acute Assessment and plan: Continue CPAP at night. (8) Hypertension Current Visit: Yes Status: Chronic Assessment and plan: Patient slightly hypertensive, we will restart home metoprolol. Continue to monitor. Qualifiers: Hypertension type: essential hypertension Qualified Code(s): I10 - Essential (primary) hypertension (9) DVT prophylaxis Current Visit: Yes Status: Acute Assessment and plan: Continue Lovenox subcutaneous 40 mg daily. - Subjective Interval history: Patient seen and examined at bedside. Patient states that he feels much better today. He feels like he continues to breathe easier. He still somewhat fatigued and requests 1 more day of hospitalization to completely recover. - Constitutional Vitals: Temp Pulse Resp BP Pulse Ox 97.7 F 54 18 156/89 91 09/27/17 11:14 09/27/17 11:14 09/27/17 11:15 09/27/17 11:14 09/27/17 11:15 General appearance: Present: A&O X 3, no acute distress - Respiratory Respiratory exam: Present: wheezes (Rare, scattered end expiratory). Absent: rales, rhonchi - Cardiovascular Cardiovascular exam: Present: RRR. Absent: gallop, rubs, systolic murmur - GI/Abdominal GI/Abdominal exam: Present: normal bowel sounds, soft. Absent: distended, tenderness - Extremities Exam Extremities exam: Present: warm. Absent: pedal edema, tenderness - Neurological Exam Neurological exam: Present: alert, CN II-XII intact, oriented X3, no focal deficits Internal Medicine: Result - Labs CBC & Chem 7: 09/26/17 02:20 09/26/17 02:20 Consult Discharge Plan - Plan Referrals: Rangel Puentes DO [Primary Care Provider] - 10/02/17 2:30 pm <Oli Mahoney - Last Filed: 09/27/17 19:09> Date of Encounter: 09/27/17 - Assessment and plan (1) Acute respiratory failure with hypoxia Current Visit: Yes Status: Resolved (2) Acute exacerbation of chronic obstructive pulmonary disease (COPD) Current Visit: Yes Status: Acute (3) RSV (respiratory syncytial virus infection) Current Visit: Yes Status: Acute (4) Hypertension Current Visit: Yes Status: Chronic Qualifiers: Hypertension type: essential hypertension Qualified Code(s): I10 - Essential (primary) hypertension (5) Hypokalemia Current Visit: Yes Status: Resolved (6) ELIZABETH on CPAP Current Visit: No Status: Acute (7) Diastolic heart failure Current Visit: Yes Status: Chronic Qualifiers: Heart failure chronicity: chronic Qualified Code(s): I50.32 - Chronic diastolic (congestive) heart failure - Constitutional Vitals: Temp Pulse Resp BP Pulse Ox 97.6 F 64 18 135/57 91 09/27/17 15:59 09/27/17 15:59 09/27/17 15:59 09/27/17 15:59 09/27/17 15:59 Internal Medicine: Result - Labs CBC & Chem 7: 09/26/17 02:20 09/26/17 02:20 - Attending Attestation I examined this patient and my medical decision-making was reviewed with the Resident Physician on 09/27/17. I agree with the documented findings, disposition and treatment plan as described except to the extent set forth below. Mr Beth is currently admitted for acute exac COPD. He remains moderate to high risk due to potential for worsening clinical status. Mr Beth continues to wheeze but is slowly improving. He is up moving a little more. No fever or chills. Still with cough. Exam Alert. Comfortable Mucus membranes dry Heart reg Wheeze present I/P 1. Exac COPD 2. RSV Further diagnoses and plan as above.
--- NOTE | 2017-09-27 20:12 | Electrocardiograph Report ---
[place] [id number] Test Date: 2017-09-25 Pat Name: Aftab Beth Department: 103 Room: 3B31 Gender: M [employer] Mechanic: : 1970 Requested By: Daniel Garber Order Number: [id number] Reading MD: Britney Muniz Measurements Intervals [place] Rate: 46 P: 12 OR: 168 QRS: -46 QRSD: 99 T: 3 QT: 471 QTc: 429 Interpretive Statements SINUS BRADYCARDIA LEFT ANTERIOR FASCICULAR BLOCK [QRS AXIS <= -45, QR IN I, RS IN II] MODERATE T-WAVE ABNORMALITY, CONSIDER ANTEROLATERAL ISCHEMIA [-0.1+ mV T WAVE IN V3-V6] Electronically Signed On 09-27-2017 20:10:29 EST by Britney Muniz
[2017-09-27] MEDS: traZODone 50 MG TABLET PO PRN (20:55)
[2017-09-28] MEDS: *HR* OxyCODONE/APAP 10/325 TABLET PO PRN ×2 (03:31→09:35)
[2017-09-28] MEDS: Ipratropium/Albuterol Neb 3 ML IH SCH ×4 (03:38→16:24)
[2017-09-28] MEDS ORDERED: *HR* Enoxaparin 40 MG/0.4 ML SYRINGE SQ SCH (06:00)
[2017-09-28 07:29] VITALS: BP 152/76
[2017-09-28] MEDS: Insulin LISPRO 300 UNITS/3 ML VIAL SQ SCH (08:13)
[2017-09-28] MEDS: Lisinopril 20 MG TABLET PO SCH (08:13)
[2017-09-28] MEDS: Furosemide 40 MG TABLET PO SCH (08:13)
[2017-09-28] MEDS: Pregabalin 75 MG CAPSULE PO SCH (08:13)
[2017-09-28] MEDS: Aspirin 81 MG TAB.CHEW PO SCH (08:14)
[2017-09-28] MEDS: *HR* Morphine Sulfate SR (12 HR) 30 MG TABLET.ER PO SCH (08:14)
[2017-09-28] MEDS: (Fluticasone/Vilanterol [Breo Ellipta 100-25 Mcg Inh] IH SCH (08:15)
--- NOTE | 2017-09-28 08:47 | Discharge Summary ---
Date of Encounter: 09/28/17 Time of Encounter: 08:45 - Discharge Diagnosis (1) Acute respiratory failure with hypoxia Priority: Primary Status: Resolved (2) Acute exacerbation of chronic obstructive pulmonary disease (COPD) Priority: Primary Status: Resolved (3) RSV (respiratory syncytial virus infection) Priority: Secondary Status: Acute (4) Hypertension Priority: Secondary Status: Chronic Qualifiers: Hypertension type: essential hypertension Qualified Code(s): I10 - Essential (primary) hypertension (5) Hypokalemia Priority: Secondary Status: Resolved (6) ELIZABETH on CPAP Priority: Secondary Status: Chronic (7) Diastolic heart failure Priority: Secondary Status: Chronic Qualifiers: Heart failure chronicity: chronic Qualified Code(s): I50.32 - Chronic diastolic (congestive) heart failure Hospital course: Mr. Beth is a 47 year old male with hx of COPD intermittently using oxygen at home presented to ED from primary care office with worsening dyspnea. He was evaluated and placed in observation for further care. Mr Beth was placed in observation on med floor. He was on oxygen as well as steroids and aerosols. Initially he was placed on abx but respiratory panel was positive for RSV so abx discontinued. He was transitioned to oral steroids and oxygen was tapered. He had slow improvement in his symptoms. Today he is afebrile with stable vitals. He is nearing his baseline respiratory and is ready for discharge home. He was advised to use his oxygen and follow up as arranged. Discharge discussed with: patient - Time Spent with Patient Total time spent providing and/or coordinating discharge services: 41min - Discharge Medications Prescriptions: predniSONE [PredniSONE] 10 mg PO DAILY #30 tablet Home Medications: Albuterol Sulfate [Albuterol Inhaler] 2 puff IH Q4H PRN 03/26/15 [History] Lisinopril [Zestril] 20 mg PO DAILY 03/26/15 [History] Metoprolol [Lopressor] 50 mg PO BID 03/26/15 [History] Multivitamin/Iron/Folic Acid [Centrum Complete Multivit Tab] 1 each PO DAILY [History] Potassium Chloride 20 meq PO DAILY 03/26/15 [History] Pregabalin [Lyrica] 150 mg PO BID 03/26/15 [History] Fluticasone/Salmeterol [Advair 250-50 Diskus] 1 each IH BID 09/15/16 [History] Tiotropium [Spiriva] 18 mcg IH DAILY 09/15/16 [History] Trazodone HCl 150 mg PO HS 09/15/16 [History] Allopurinol [Zyloprim] 300 mg PO DAILY 09/25/17 [History] Atorvastatin Calcium [Lipitor] 20 mg PO HS 09/25/17 [History] Fluticasone/Vilanterol [Breo Ellipta 100-25 Mcg INH] 1 each IH DAILY 09/25/17 [ History] Furosemide [Lasix] 40 mg PO BID 09/25/17 [History] Morphine Sulfate/Naltrexone [Embeda ER 30-1.2 mg Capsule] 1 each PO BID [History] Omeprazole [PriLOSEC] 20 mg PO DAILY 09/25/17 [History] OxyCODONE/APAP 10/325 [Percocet 10/325 MG] 1 each PO Q6H PRN 09/25/17 [History] Sertraline [Zoloft] 100 mg PO DAILY 09/25/17 [History] predniSONE [PredniSONE] 10 mg PO DAILY #30 tablet 09/28/17 [Rx] Allergies/Adverse Reactions: 3 Allergy/AdvReac Type Severity Reaction Status Date / Time hydrocodone [From Lortab] AdvReac Vomiting Verified 10/29/16 15:08 morphine AdvReac Headache Verified 10/29/16 15:08 NSAIDS (Non-Steroidal AdvReac Nausea Verified 10/29/16 15:08 Anti-Inflamma Date of admission: 09/27/17 23:43 Primary care physician: Rangel Puentes, Discharging clinician: Oli Mahoney Anticipated date of discharge: 09/28/17 - Constitutional Vitals: Temp Pulse Resp BP Pulse Ox 98.4 F 56 18 152/76 90 09/28/17 07:27 09/28/17 07:27 09/28/17 07:27 09/28/17 07:27 09/28/17 07:27 General appearance: Present: A&O X 3, answers questions appropriately - Head Head exam: Present: atraumatic, normocephalic - Eye Eye exam: Present: EOMI, conjuntiva pink - ENT ENT exam: Present: mucous membranes dry - Respiratory Respiratory exam: Present: wheezes. Absent: rales, rhonchi Additional comments: Overall improved air movement. - Cardiovascular Cardiovascular exam: Present: RRR. Absent: systolic murmur, tachycardia - GI/Abdominal GI/Abdominal exam: Present: soft. Absent: tenderness - Extremities Exam Extremities exam: Present: warm. Absent: tenderness - Neurological Exam Neurological exam: Present: alert, oriented X3, no focal deficits - Skin Skin exam: Present: dry, warm. Absent: rash - Patient Status Disposition: Home, Self-Care Condition: Fair Functional capacity at discharge: independent ambulation Overall status at discharge: patient is progressing back to baseline - Discharge Instructions Follow Up With: Rangel Puentes DO [Primary Care Provider] - 10/02/17 2:30 pm - Diet and Activity Activity: increase activity as tolerated Diet: advance to your usual diet
[2017-09-28] MEDS ORDERED: predniSONE 20 MG TABLET PO SCH (09:00)
== END 2017-09-28 14:10 | disposition home or self-care (01) | DRG 190 ==
LOC: 3BNU 14:49 → EMEROO 14:49 → SUATTDRO 16:27 → 3BNU 17:26
PROVIDERS: ADMIT Internal Medicine; ATTEND Internal Medicine

== ENCOUNTER 2017-10-17 15:35 | Inpatient (IN) ==
[2017-10-17] MEDS ORDERED: methylPREDNISolone 125 MG/2 ML VIAL IVP ONE (16:15)
[2017-10-17] MEDS ORDERED: Ipratropium/Albuterol Neb 3 ML IH ONE (16:15)
[2017-10-17] MEDS ORDERED: Ondansetron 4 MG/2 ML VIAL IVP ONE (16:16)
--- NOTE | 2017-10-17 16:21 | Emergency Department Note ---
Disposition Clinical Impression: HCAP (healthcare-associated pneumonia), Hypoxia, Hypokalemia, COPD exacerbation Chest pain Qualifiers: Chest pain type: chest pain on breathing Qualified Code(s): R07.1 - Chest pain on breathing Disposition: Admitted As Inpatient Condition: Good Time of Disposition: 20:34 Chest Pain HPI - General Chief Complaint: ED Shortness of Breath/Dyspnea Stated Complaint: ADELINE chest pain Time Seen by Provider: 10/17/17 16:00 Source: patient Limitations: no limitations Vital Signs Reviewed: Yes Nursing Notes Reviewed: Yes - History of Present Illness HPI Narrative: 47-year-old male complains of atypical chest pain is started 2 days ago with worsening shortness of breath with exertion. Patient's states the pain is across his chest is sharp in nature 6/10 in intensity without radiation to neck or shoulders or arms. Pain is nonreproducible with palpation and across central location of patient's chest. Patient denies any hemoptysis. Patient admits to bilateral calf pain that is worse when his legs well. Patient states he is known to have worsening swelling on the left versus the right. Severity scale (1-10): 6 - Related Data Home Medications Medication Instructions Recorded Confirmed Albuterol Sulfate [Albuterol 2 puff IH Q4H PRN 03/26/15 10/17/17 Inhaler] Lisinopril [Zestril] 20 mg PO DAILY 03/26/15 10/17/17 Metoprolol [Lopressor] 50 mg PO BID 03/26/15 10/17/17 Multivitamin/Iron/Folic Acid 1 each PO DAILY 03/26/15 10/17/17 [Centrum Complete Multivit Tab] Potassium Chloride 20 meq PO DAILY 03/26/15 10/17/17 Pregabalin [Lyrica] 150 mg PO BID 03/26/15 10/17/17 Fluticasone/Salmeterol [Advair 1 each IH BID 09/15/16 10/17/17 250-50 Diskus] Tiotropium [Spiriva] 18 mcg IH DAILY 09/15/16 10/17/17 Trazodone HCl 150 mg PO HS 09/15/16 10/17/17 Allopurinol [Zyloprim] 300 mg PO DAILY 09/25/17 10/17/17 Atorvastatin Calcium [Lipitor] 20 mg PO HS 09/25/17 10/17/17 Fluticasone/Vilanterol [Breo 1 each IH DAILY 09/25/17 10/17/17 Ellipta 100-25 Mcg INH] Furosemide [Lasix] 40 mg PO BID 09/25/17 10/17/17 Morphine Sulfate/Naltrexone 1 each PO BID 09/25/17 10/17/17 [Embeda ER 30-1.2 mg Capsule] Omeprazole [PriLOSEC] 20 mg PO DAILY 09/25/17 10/17/17 OxyCODONE/APAP 10/325 [Percocet 1 each PO Q6H PRN 09/25/17 10/17/17 10/325 MG] Sertraline [Zoloft] 100 mg PO DAILY 09/25/17 10/17/17 Allergies Allergy/AdvReac Type Severity Reaction Status Date / Time hydrocodone [From Lortab] AdvReac Vomiting Verified 10/29/16 15:08 morphine AdvReac Headache Verified 10/29/16 15:08 NSAIDS (Non-Steroidal AdvReac Nausea Verified 10/29/16 15:08 Anti-Inflamma All systems ED: reviewed and negative except as stated. Review of Systems: As Per HPI Constitutional: Reports: weakness. Denies: fever, chills ENT ED: Reports: congestion Cardiovascular: Reports: chest pain. Denies: palpitations Respiratory: Reports: cough, dyspnea, wheezes Gastrointestinal: Reports: nausea, vomiting. Denies: diarrhea Chest Pain PMH - Past Medical History Medical history: Reports: asthma, CHF, COPD, diabetes, hyperlipidemia, hypertension, kidney stones, renal disease, other Surgical history: Reports: other Psychiatric history: Reports: anxiety, depression, panic disorder, PTSD - Social History Smoking Status: Current every day smoker Alcohol use: Reports: none Drug use: Reports: none Physical Exam Vital Signs Temperature 97.4 F L 10/17/17 15:42 Pulse Rate 70 10/17/17 15:42 Respiratory Rate 18 10/17/17 15:42 Blood Pressure 135/81 10/17/17 15:42 O2 Sat by Pulse Oximetry 96 10/17/17 15:42 Temperature 97.4 F L 10/17/17 15:42 Pulse Rate 76 10/17/17 17:44 Respiratory Rate 20 10/17/17 17:44 Blood Pressure 134/79 03/14/18 17:44 O2 Sat by Pulse Oximetry 91 10/17/17 17:44 Oxygen Delivery Oxygen Delivery Nasal Cannula CONSTITUTIONAL: On well-appearing well-nourished male who is alert and oriented 3. Patient is having labored breathing with audible wheeze HEAD: Normocephalic; atraumatic EYES: PERRL, no scleral icterus NOSE: The nose is normal in appearance without rhinorrhea NECK: No JVD or distended neck veins RESP: Normal chest excursion with respiration; positive for bibasilar rales, wheezing, and poor penetration to lower airways. CARD: Regular rhythm, without murmurs, rub or gallop ABD: Non-distended; non-tender, soft, without rigidity, rebound or guarding,no pulsatile mass CHEST: No pain with palpation SKIN: Normal for age and race; warm and dry without diaphoresis ; no apparent lesions EXTREMITIES: Pulses are 2 plus and equal times 4 extremities, no peripheral edema but has bilateral calf tenderness to palpation. Left lower extremity appears swollen but non-erythematous cooing compared to right lower extremity. - General Limitations: no limitations General appearance: alert Course - Reevaluation(s) Reevaluation #1: Receiving DuoNeb therapy. Still states his chest hurts. We will reassess after DuoNeb is completed. Aspirin and nitroglycerin sublingual also ordered. Time: 17:14 Reevaluation #2: Patient states the pain has increased from 6/10-8/10 after that DuoNeb therapy. He states his breathing has improved slightly. Aspirin and nitroglycerin will be administered. With worsening pleuritic style chest pain currently considering PE more as a likely source to patient's discomfort. Time: 17:30 Reevaluation #3: Pain is currently from 8/10-4/10 after 2 nitroglycerin dosages. Patient received her third dose and Nitropaste Time: 18:43 Additional Reevaluation(s): 1854 hrs.: - Consultations Consultation #1: Dr. Gregorio the hospitalist accepted patient for admission to telemetry bed Time: 19:35 Vital Signs Temperature 97.4 F L 10/17/17 15:42 Pulse Rate 70 10/17/17 15:42 Respiratory Rate 18 10/17/17 15:42 Blood Pressure 135/81 10/17/17 15:42 O2 Sat by Pulse Oximetry 96 10/17/17 15:42 Temperature 98.0 F 10/18/17 10:50 Pulse Rate 58 10/18/17 10:50 Respiratory Rate 16 10/18/17 11:54 Blood Pressure 165/87 10/18/17 10:50 O2 Sat by Pulse Oximetry 98 10/18/17 11:54 Oxygen Delivery Oxygen Delivery Nasal Cannula Chest Pain - MDM Narrative Medical decision making narrative: Chest pain and shortness of breath history of COPD and CHF concerning for possible COPD exacerbation, worsening CHF. Patient also has a history of renal insufficiency. Patient may be having worsening renal pathology. Patient denies any hemoptysis, and is not hypoxic on room air but but appears severely short of breath. Patient's symptoms were minimally improved after DuoNeb 3, patient had an increase in chest pain, and was sent for CTA chest to look for possible pulmonary embolism. Patient CT the chest is negative for pulmonary embolism but shows a multilobar pneumonia. Patient has a previous admission within the past 90 days, so this will be treated as HCAP. Patient will be started on vancomycin and levofloxacin after initiation of cultures. Current plan is for admission for IV antibiotic therapy, hypoxia, hypokalemia secondary to HCAP. Patient understands and agrees to treatment plan for admission. Patient's pain was reduced to 0 after his third nitroglycerin treatment but then his pain increased back to 2/10. Nitroglycerin paste is applied and patient is currently comfortable. Patient's breathing is improved a lot but still appears to have some symptoms. Albuterol nebulizer [address] Gregorio the hospitalist accepted patient for admission to telemetry bed. Hospitalist has been updated on patient's workup and concerns for possible cardiac etiology with his chest pain symptoms and reduction of pain with nitroglycerin versus resolution of symptoms with DuoNeb therapy for COPD exacerbation - Lab Data Lab results reviewed: Yes I reviewed the patient's lab results. Lab results narrative: Short CBC 10/17/17 Range/Units 16:19 WBC 11.5 H (4.3-11.1) K/mcL Hgb 14.4 (12.9-16.9) g/dL Hct 43.7 (37.5-50.1) % Plt Count 178 (140-400) K/mcL Neutrophils # 9.5 H (1.6-8.9) K/mcL BMP 10/17/17 Range/Units 16:19 Sodium 140 (136-145) mEq/L Potassium 3.1 L (3.5-5.1) mEq/L Chloride 107 (98-107) mEq/L Carbon Dioxide 23 (23-29) mEq/L BUN 16 (6-20) mg/dL Creatinine 1.00 (0.70-1.30) mg/dL Glucose 175 H (70-105) mg/dL Calcium 9.4 (8.6-10.3) mg/dL Cardiac Enzymes 10/17/17 Range/Units 16:19 Troponin I < 0.03 (< 0.04) ng/mL Result diagrams: 10/18/17 01:09 10/18/17 01:09 Lab Results 10/17/17 10/17/17 10/17/17 Range/Units 16:19 16:19 16:19 WBC 11.5 H (4.3-11.1) K/mcL RBC 5.42 (4.19-5.50) M/mcL Hgb 14.4 (12.9-16.9) g/dL Hct 43.7 (37.5-50.1) % MCV 80.6 L (83.0-100.0) fL MCH 26.6 L (28.0-33.3) pg MCHC 33.0 (31.6-35.5) g/dL RDW 16.3 H (11.5-14.5) % Plt Count 178 (140-400) K/mcL MPV 11.2 (9.4-12.4) fL Immature Gran % 0.6 (0-4) % Seg Neutrophils % 82.7 % Lymphocytes % 9.2 % Monocytes % 5.9 % Eosinophils % 1.3 % Basophils % 0.3 % Neutrophils # 9.5 H (1.6-8.9) K/mcL Lymphocytes # 1.1 (0.6-4.6) K/mcL Monocytes # 0.7 (0.0-1.3) K/mcL Eosinophils # 0.2 (0.0-0.6) K/mcL Basophils # 0.0 (0.0-0.2) K/mcL VBG pH (7.32-7.42) pH Units VBG pCO2 (41-51) mmHg VBG pO2 (25-50) mmHg VBG HCO3 (21-27) mEq/L Sodium 140 (136-145) mEq/L Potassium 3.1 L (3.5-5.1) mEq/L Chloride 107 (98-107) mEq/L Carbon Dioxide 23 (23-29) mEq/L BUN 16 (6-20) mg/dL Creatinine 1.00 (0.70-1.30) mg/dL Est GFR ( Amer) > 60 (> 60) Est GFR (Non-Af Amer) > 60 (> 60) BUN/Creatinine Ratio 16 (6-26) Glucose 175 H (70-105) mg/dL Calculated Osmolality 295 (280-300) Calcium 9.4 (8.6-10.3) mg/dL Magnesium (1.6-2.6) mg/dL Troponin I < 0.03 (< 0.04) ng/mL B-Natriuretic Peptide 86 (Less than 100) pg/mL 10/17/17 10/18/17 10/18/17 Range/Units 19:28 01:09 01:09 WBC 9.3 (4.3-11.1) K/mcL RBC 4.95 (4.19-5.50) M/mcL Hgb 13.2 (12.9-16.9) g/dL Hct 40.0 (37.5-50.1) % MCV 80.8 L (83.0-100.0) fL MCH 26.7 L (28.0-33.3) pg MCHC 33.0 (31.6-35.5) g/dL RDW 16.2 H (11.5-14.5) % Plt Count 183 (140-400) K/mcL MPV 10.7 (9.4-12.4) fL Immature Gran % 0.8 (0-4) % Seg Neutrophils % 95.6 % Lymphocytes % 3.1 % Monocytes % 0.5 % Eosinophils % 0.0 % Basophils % 0.0 % Neutrophils # 8.9 (1.6-8.9) K/mcL Lymphocytes # 0.3 L (0.6-4.6) K/mcL Monocytes # 0.1 (0.0-1.3) K/mcL Eosinophils # 0.0 (0.0-0.6) K/mcL Basophils # 0.0 (0.0-0.2) K/mcL VBG pH 7.48 H (7.32-7.42) pH Units VBG pCO2 35 L (41-51) mmHg VBG pO2 106 H (25-50) mmHg VBG HCO3 26 (21-27) mEq/L Sodium (136-145) mEq/L Potassium (3.5-5.1) mEq/L Chloride (98-107) mEq/L Carbon Dioxide (23-29) mEq/L BUN (6-20) mg/dL Creatinine (0.70-1.30) mg/dL Est GFR ( Amer) (> 60) Est GFR (Non-Af Amer) (> 60) BUN/Creatinine Ratio (6-26) Glucose (70-105) mg/dL Calculated Osmolality (280-300) Calcium (8.6-10.3) mg/dL Magnesium (1.6-2.6) mg/dL Troponin I < 0.03 (< 0.04) ng/mL B-Natriuretic Peptide (Less than 100) pg/mL 10/18/17 Range/Units 01:09 WBC (4.3-11.1) K/mcL RBC (4.19-5.50) M/mcL Hgb (12.9-16.9) g/dL Hct (37.5-50.1) % MCV (83.0-100.0) fL MCH (28.0-33.3) pg MCHC (31.6-35.5) g/dL RDW (11.5-14.5) % Plt Count (140-400) K/mcL MPV (9.4-12.4) fL Immature Gran % (0-4) % Seg Neutrophils % % Lymphocytes % % Monocytes % % Eosinophils % % Basophils % % Neutrophils # (1.6-8.9) K/mcL Lymphocytes # (0.6-4.6) K/mcL Monocytes # (0.0-1.3) K/mcL Eosinophils # (0.0-0.6) K/mcL Basophils # (0.0-0.2) K/mcL VBG pH (7.32-7.42) pH Units VBG pCO2 (41-51) mmHg VBG pO2 (25-50) mmHg VBG HCO3 (21-27) mEq/L Sodium 137 (136-145) mEq/L Potassium 3.3 L (3.5-5.1) mEq/L Chloride 105 (98-107) mEq/L Carbon Dioxide 22 L (23-29) mEq/L BUN 19 (6-20) mg/dL Creatinine 1.04 (0.70-1.30) mg/dL Est GFR ( Amer) > 60 (> 60) Est GFR (Non-Af Amer) > 60 (> 60) BUN/Creatinine Ratio 18 (6-26) Glucose 212 H (70-105) mg/dL Calculated Osmolality 293 (280-300) Calcium 9.2 (8.6-10.3) mg/dL Magnesium 1.7 (1.6-2.6) mg/dL Troponin I (< 0.04) ng/mL B-Natriuretic Peptide (Less than 100) pg/mL - Radiology Data Radiology results reviewed: Yes I reviewed the patient's radiology results. Chest X-Ray 10/17/17 15:45 IMPRESSION: Subtle patchy opacity in the right middle lobe either atelectasis or pneumonia. D/ / Bharati Love MD / Bharati Love MD Interpreting Provider: Bharati Love MD Chest CTA 10/17/17 17:41 IMPRESSION: 1. The study is slightly limited for evaluation pulmonary emboli due to some respiratory motion artifact and suboptimal contrast bolus timing through the pulmonary arteries. Otherwise no convincing evidence of pulmonary emboli. 2. Small area of consolidation in the anterior right middle lobe, extending into the adjacent right upper lobe. Additional cluster of airspace nodules in the left lung apex and right middle lobe. Findings are suspicious for a multifocal bronchopneumonia. 3. Patchy mosaic attenuation is also noted which likely represent sequela of air trapping from small airway disease. Atypical pneumonitis is also in the differential. D/ / 10/17/2017 18:33:34 Aftab Tipton MD / nataly Interpreting Provider: Aftab Tipton MD - EKG Data EKG attestation: Yes I reviewed and interpreted this EKG. EKG results narrative: EKG taken 10/17/2017 at 1546 hrs. shows sinus rhythm at a rate of 70 bpm with no acute ST elevations or depressions and in the leads QRS widening or QT prolongation Heart Score - Score History: Slightly Suspicious EKG: Normal Age: 45-65 Risk Factors: Equal/Greater than 3 risk factor or history of atherosclerotic disease Troponin: Less than normal limit HEART Score Total: 3 Attestation Statement - Attestation Attestation: I examined this patient and my medical decision-making was reviewed with the Resident Physician. I agree with the documented findings, disposition and treatment plan as described except to the extent set forth below. Pleuritic CP, no tachycardia. Eval for PE negative for clot but positive for multilobar pneumonia. Does not meet SIRS criteria. Recent admission, cultures sent, treated with Vancomycin and Levaquin.
[2017-10-17 16:47] LABS: Basophils % 0.3 %; Eosinophils # 0.2 K/mcL (0.0-0.6); Eosinophils % 1.3 %; Hematocrit 43.7 % (37.5-50.1); Hemoglobin 14.4 g/dL (12.9-16.9); Immature Granulocytes % 0.6 % (0-4); Lymphocytes # 1.1 K/mcL (0.6-4.6); Lymphocytes % 9.2 %; Mean Corpuscular Hemoglobin 26.6 pg (28.0-33.3); Mean Corpuscular Volume 80.6 fL (83.0-100.0); Mean Platelet Volume 11.2 fL (9.4-12.4); Monocytes # 0.7 K/mcL (0.0-1.3); Monocytes % 5.9 %; Neutrophils # 9.5 K/mcL (1.6-8.9); Platelet Count 178 K/mcL (140-400); Red Blood Count 5.42 M/mcL (4.19-5.50); Red Cell Distribution Width 16.3 % (11.5-14.5); Segmented Neutrophils % 82.7 %
[2017-10-17 17:01] LABS: BUN/Creatinine Ratio 16 (6-26); Blood Urea Nitrogen 16 mg/dL (6-20); Calcium 9.4 mg/dL (8.6-10.3); Carbon Dioxide 23 mEq/L (23-29); Chloride 107 mEq/L (98-107); Glucose 175 mg/dL (70-105); Osmolality,Calculated 295 (280-300); Potassium 3.1 mEq/L (3.5-5.1); Sodium 140 mEq/L (136-145); eGFR For African Americans > 60 (> 60); eGFR For Non-African Americans > 60 (> 60)
[2017-10-17 17:02] LABS: Troponin I < 0.03 ng/mL (< 0.04)
[2017-10-17] MEDS ORDERED: Aspirin 81 MG TAB.CHEW PO ONE (17:13)
[2017-10-17] MEDS ORDERED: Nitroglycerin 0.4 MG TAB.SUBL SL PRN (17:14)
[2017-10-17] MEDS ORDERED: *HR* FentaNYL (PF) 100 MCG/2 ML VIAL IVP ONE (18:39)
[2017-10-17] MEDS ORDERED: Nitroglycerin 1 INCH/GM PACKET TP ONE (18:47)
[2017-10-17] MEDS ORDERED: Levofloxacin 750 MG/150 ML 750 MG/150 ML BAG IVPB ONE (18:50)
[2017-10-17 19:33] LABS: VBG HCO3 26 mEq/L (21-27); VBG PCO2 35 mmHg (41-51); VBG PH 7.48 pH Units (7.32-7.42); VBG PO2 106 mmHg (25-50)
[2017-10-17] MEDS ORDERED: Albuterol 2.5 MG/3 ML NEBULIZER IH ONE (20:10)
[2017-10-17] MEDS ORDERED: Acetaminophen 325 MG TABLET PO PRN (23:50)
[2017-10-18] MEDS ORDERED: Naloxone 0.4 MG/ML INJ IVP PRN (00:44)
[2017-10-18] MEDS ORDERED: Ipratropium/Albuterol Neb 3 ML IH PRN (00:52)
[2017-10-18 01:24] LABS: Hemoglobin 13.2 g/dL (12.9-16.9); Immature Granulocytes % 0.8 % (0-4); Lymphocytes # 0.3 K/mcL (0.6-4.6); Lymphocytes % 3.1 %; Mean Corpuscular Hemoglobin 26.7 pg (28.0-33.3); Mean Corpuscular Volume 80.8 fL (83.0-100.0); Mean Platelet Volume 10.7 fL (9.4-12.4); Monocytes # 0.1 K/mcL (0.0-1.3); Monocytes % 0.5 %; Neutrophils # 8.9 K/mcL (1.6-8.9); Platelet Count 183 K/mcL (140-400); Red Blood Count 4.95 M/mcL (4.19-5.50); Red Cell Distribution Width 16.2 % (11.5-14.5); Segmented Neutrophils % 95.6 %
[2017-10-18] MEDS: traZODone 50 MG TABLET PO SCH ×2 (01:30→20:27)
[2017-10-18] MEDS: *HR* OxyCODONE/APAP 10/325 TABLET PO PRN ×4 (01:38→23:14)
[2017-10-18 01:41] LABS: BUN/Creatinine Ratio 18 (6-26); Blood Urea Nitrogen 19 mg/dL (6-20); Calcium 9.2 mg/dL (8.6-10.3); Carbon Dioxide 22 mEq/L (23-29); Chloride 105 mEq/L (98-107); Glucose 212 mg/dL (70-105); Magnesium 1.7 mg/dL (1.6-2.6); Osmolality,Calculated 293 (280-300); Potassium 3.3 mEq/L (3.5-5.1); Sodium 137 mEq/L (136-145); eGFR For African Americans > 60 (> 60); eGFR For Non-African Americans > 60 (> 60)
--- NOTE | 2017-10-18 02:56 | Internal Med History&Physical ---
Date of Encounter: 10/17/17 Time of Encounter: 23:00 Assessment and Plan (1) Chest pain Current visit: Yes Status: Acute Patient has chest pain. Chest x-ray shows pneumonia. Chest pain is pleural like pain. CTA has been done, no PE identified. Most likely pain is caused by pneumonia. However, will rule out ACS. - Continue cardiac monitoring - Track 3 sets of troponin Qualifiers: Chest pain type: chest pain on breathing Qualified Code(s): R07.1 - Chest pain on breathing; R07.81 - Pleurodynia (2) HCAP (healthcare-associated pneumonia) Current visit: Yes Status: Acute Patient has been hospitalized the recently. Chest x-ray and CT shows pneumonia. Will treat patient as healthcare associated pneumonia - Place patient on Vanco and cefepime - Symptomatic and supportive treatment (3) COPD (chronic obstructive pulmonary disease) Current visit: No Status: Acute Patient has no wheezing. Continue home medications. Nebulizer scheduled and when necessary Qualifiers: COPD type: emphysema Emphysema type: other Qualified Code(s): J43.8 - Other emphysema (4) DVT prophylaxis Current visit: No Status: Acute Heparin subcutaneously (5) CHF (congestive heart failure) Current visit: No Status: Chronic Appears euvolemic at this point. Continue home medications Lasix Qualifiers: Qualified Code(s): I50.33 - Acute on chronic diastolic (congestive) heart failure (6) Hypertension Current visit: No Status: Chronic Continue home medication. Closely follow-up BP Qualifiers: Hypertension type: essential hypertension Qualified Code(s): I10 - Essential (primary) hypertension (7) ELIZABETH on CPAP Current visit: No Status: Chronic Continue CPAP during night (8) Hypokalemia Current visit: No Status: Resolved Give supplement. Follow-up potassium level Internal Medicine - H&P: HPI Chief complaint: Shortness of breath Admitted From: Home Plans for Post Hospital Care: Home History of present illness: Mr. Beth is a 47 year old male with history of COPD, asthma, CHF, hypertension, presented to ER for shortness of breath. Patient said shortness of breath started from 3 days ago. The patient has cough, with greenish and yellowish sputum. Patient denies fever but complaining of cold. Patient denies nausea or vomiting. Since today, patient started to have chest pain, pain is constant, worsening on deep breath. In emergency room, chest x-ray shows right-sided pneumonia. CTA has been done, no PE identified. Patient was admitted for pneumonia. Patient has been hospitalized recently in September 2017. Past Med Surg Social Fam HX - Past Medical History Medical history: asthma, CHF, COPD, diabetes, hyperlipidemia, hypertension, kidney stones, renal disease, other Psychiatric history: anxiety, depression, panic disorder, PTSD - Past Surgical History Surgical History: other - Social History Smoking Status: Current every day smoker Smokeless Tobacco Status: No Alcohol use: none Drug use: none - Family History Mother Family Member Ethnicity: Non- Living Status: Cause of : murdered Hx Family Cardiac Disorders: Yes Hx Family Respiratory Disorders: No Hx Family Cancer: No Hx Family Endocrine Disorder: Yes (diabetes) Father Family Member Ethnicity: Non- Living Status: Age at : 65 Cause of : "breathing problem" Hx Family Cardiac Disorders: Yes (CHF) Hx Family Respiratory Disorders: Yes Hx Family Cancer: No Hx Family GI Disorders: No Hx Family Genitourinary Disorders: No Hx Family Endocrine Disorder: No Hx Family Musculoskeletal Disorders: No Hx Family Neuromuscular Disorders: No Hx Family Neurologic Disorders: No Hx Family HEENT Disorders: No Hx Family Autoimmune Disorders: No Hx Family Reproductive Disorders: No Internal Medicine - H&P: Meds Albuterol Sulfate [Albuterol Inhaler] 2 puff IH Q4H PRN 03/26/15 [History] Lisinopril [Zestril] 20 mg PO DAILY 03/26/15 [History] Metoprolol [Lopressor] 50 mg PO BID 03/26/15 [History] Multivitamin/Iron/Folic Acid [Centrum Complete Multivit Tab] 1 each PO DAILY [History] Potassium Chloride 20 meq PO DAILY 03/26/15 [History] Pregabalin [Lyrica] 150 mg PO BID 03/26/15 [History] Fluticasone/Salmeterol [Advair 250-50 Diskus] 1 each IH BID 09/15/16 [History] Tiotropium [Spiriva] 18 mcg IH DAILY 09/15/16 [History] Trazodone HCl 150 mg PO HS 09/15/16 [History] Allopurinol [Zyloprim] 300 mg PO DAILY 09/25/17 [History] Atorvastatin Calcium [Lipitor] 20 mg PO HS 09/25/17 [History] Fluticasone/Vilanterol [Breo Ellipta 100-25 Mcg INH] 1 each IH DAILY 09/25/17 [ History] Furosemide [Lasix] 40 mg PO BID 09/25/17 [History] Morphine Sulfate/Naltrexone [Embeda ER 30-1.2 mg Capsule] 1 each PO BID [History] Omeprazole [PriLOSEC] 20 mg PO DAILY 09/25/17 [History] OxyCODONE/APAP 10/325 [Percocet 10/325 MG] 1 each PO Q6H PRN 09/25/17 [History] Sertraline [Zoloft] 100 mg PO DAILY 09/25/17 [History] 3 Allergy/AdvReac Type Severity Reaction Status Date / Time hydrocodone [From Lortab] AdvReac Vomiting Verified 10/29/16 15:08 morphine AdvReac Headache Verified 10/29/16 15:08 NSAIDS (Non-Steroidal AdvReac Nausea Verified 10/29/16 15:08 Anti-Inflamma All Systems PM: A 10-system review of systems was performed and is negative for pertinent findings except as documented above in the HPI. - Constitutional Vitals: Temp Pulse Resp BP Pulse Ox 97.9 F 73 14 143/80 96 10/17/17 22:52 10/17/17 22:52 10/18/17 02:15 10/18/17 02:15 10/18/17 02:15 General appearance: Present: A&O X 3, no acute distress, answers questions appropriately - Head Head exam: Present: atraumatic, normocephalic - Eye Eye exam: Present: PERRL, conjuntiva pink, sclera anicteric Pupils: Present: PERRL - Neck Neck exam general surgery: Present: supple, trachea midline. Absent: lymphadenopathy - Respiratory Respiratory exam: Present: CTAB, rhonchi (Scattered rhonchi bilaterally). Absent: accessory muscle use, rales, wheezes - Cardiovascular Cardiovascular exam: Present: RRR, +S1, +S2. Absent: diastolic murmur, gallop, rubs, systolic murmur - GI/Abdominal GI/Abdominal exam: Present: normal bowel sounds, soft, no peritoneal signs. Absent: distended, tenderness - Extremities Exam Extremities exam: Present: warm, radial pulses palpable and symmetrical. Absent : calf tenderness, cyanotic, pedal edema - Neurological Exam Neurological exam: Present: CN II-XII intact, oriented X3, no focal deficits. Absent: pronater drift, facial droop, speech deficit - Skin Skin exam: Present: dry, intact Internal Med - H&P Results - Labs CBC & Chem 7: 10/18/17 01:09 10/18/17 01:09 Labs: Short CBC 10/18/17 Range/Units 01:09 WBC 9.3 (4.3-11.1) K/mcL Hgb 13.2 (12.9-16.9) g/dL Hct 40.0 (37.5-50.1) % Plt Count 183 (140-400) K/mcL Neutrophils # 8.9 (1.6-8.9) K/mcL BMP 10/18/17 01:09 Sodium 137 Potassium 3.3 L Chloride 105 Carbon Dioxide 22 L BUN 19 Creatinine 1.04 Glucose 212 H Calcium 9.2 Cardiac Enzymes 10/18/17 Range/Units 01:09 Troponin I < 0.03 (< 0.04) ng/mL
[2017-10-18] MEDS: Ipratropium/Albuterol Neb 3 ML IH SCH ×4 (04:32→23:34)
[2017-10-18] MEDS: *HR* Heparin 5,000 UNIT/ML VIAL SQ SCH ×2 (05:56→16:30)
[2017-10-18] MEDS: Tiotropium 18 MCG inhalation IH SCH (07:55)
[2017-10-18] MEDS: Pregabalin 75 MG CAPSULE PO SCH ×2 (09:33→20:27)
[2017-10-18] MEDS: Cefepime HCl 1,000 MG in Water for inj. (sterile) 20 ML 10 ML IVP SCH ×3 (09:33→23:16)
[2017-10-18] MEDS: Furosemide 40 MG TABLET PO SCH ×2 (09:34→20:27)
[2017-10-18] MEDS: Multivit/Ca/Min/Fe/FA 1 TAB TABLET PO SCH (09:34)
[2017-10-18] MEDS: Lisinopril 20 MG TABLET PO SCH (09:34)
[2017-10-18] MEDS: (Breo Ellipta 100-25 Mcg Inh) IH SCH (11:22)
[2017-10-18] MEDS: Budesonide/Formoterol 80/4.5 MDI IH SCH ×2 (11:53→23:34)
--- NOTE | 2017-10-18 14:48 | Internal Med Progress Note ---
Date of Encounter: 10/18/17 Time of Encounter: 12:35 - Assessment and plan (1) Obesity (BMI 30-39.9) Current Visit: Yes Status: Chronic Assessment and plan: Chronic. Lifestyle modifications. (2) Chest pain Current Visit: Yes Status: Acute Assessment and plan: Chest pain reproducible with palpation and deep inspiration. Patient reports some pain with intermittent cough. Troponins negative 3, EKG sinus rhythm rate of 59. Continue to monitor. Patient received nitroglycerin in the emergency department , did not change chest pain, but did give him a headache. Continue telemetry Patient allergic to NSAIDs, we will continue with Tylenol for pain relief. Chest X-Ray 10/17/17 15:45 IMPRESSION: Subtle patchy opacity in the right middle lobe either atelectasis or pneumonia. D/ / Bharati Love MD / Bharati Love MD Interpreting Provider: Bharati Love MD Chest CTA 10/17/17 17:41 IMPRESSION: 1. The study is slightly limited for evaluation pulmonary emboli due to some respiratory motion artifact and suboptimal contrast bolus timing through the pulmonary arteries. Otherwise no convincing evidence of pulmonary emboli. 2. Small area of consolidation in the anterior right middle lobe, extending into the adjacent right upper lobe. Additional cluster of airspace nodules in the left lung apex and right middle lobe. Findings are suspicious for a multifocal bronchopneumonia. 3. Patchy mosaic attenuation is also noted which likely represent sequela of air trapping from small airway disease. Atypical pneumonitis is also in the differential. D/ / 10/17/2017 18:33:34 Aftab Tipton MD / nataly Interpreting Provider: Aftab Tipton MD Qualifiers: Chest pain type: chest pain on breathing Qualified Code(s): R07.1 - Chest pain on breathing; R07.81 - Pleurodynia (3) CHF (congestive heart failure) Current Visit: No Status: Chronic Assessment and plan: No acute exacerbation. Patient with history of chronic diastolic CHF. Patient appears to be euvolemic. Continue home dose of Lasix. Continue telemetry Chest X-Ray 10/17/17 15:45 IMPRESSION: Subtle patchy opacity in the right middle lobe either atelectasis or pneumonia. D/ / Bharati Love MD / Bharati Love MD Interpreting Provider: Bharati Love MD Chest CTA 10/17/17 17:41 IMPRESSION: 1. The study is slightly limited for evaluation pulmonary emboli due to some respiratory motion artifact and suboptimal contrast bolus timing through the pulmonary arteries. Otherwise no convincing evidence of pulmonary emboli. 2. Small area of consolidation in the anterior right middle lobe, extending into the adjacent right upper lobe. Additional cluster of airspace nodules in the left lung apex and right middle lobe. Findings are suspicious for a multifocal bronchopneumonia. 3. Patchy mosaic attenuation is also noted which likely represent sequela of air trapping from small airway disease. Atypical pneumonitis is also in the differential. D/ / 10/17/2017 18:33:34 Aftab Tipton MD / nataly Interpreting Provider: Aftab Tipton MD Qualifiers: Qualified Code(s): I50.33 - Acute on chronic diastolic (congestive) heart failure (4) COPD (chronic obstructive pulmonary disease) Current Visit: Yes Status: Chronic Assessment and plan: Mild exacerbation. Patient with wheezing in the upper airways today. He denies productive cough Patient also being treated for pneumonia. Receiving IV vancomycin and IV cefepime. Continue duo nebs Continue Symbicort Continue Spiriva Prednisone by mouth Qualifiers: COPD type: emphysema Emphysema type: other Qualified Code(s): J43.8 - Other emphysema (5) DVT prophylaxis Current Visit: No Status: Acute Assessment and plan: Heparin subcutaneous twice daily. (6) HCAP (healthcare-associated pneumonia) Current Visit: Yes Status: Acute Assessment and plan: Patient was treated in the recent past for community-acquired pneumonia, this admission being treated for healthcare associated pneumonia. Patient receiving vancomycin and cefepime IV, DuoNeb's, also continuing home Symbicort and Spiriva. Prednisone 40 mg by mouth daily added for wheezing and mild COPD exacerbation. Continue telemetry Continue to monitor vital signs patient condition. (7) Hypertension Current Visit: Yes Status: Chronic Assessment and plan: Chronic. Continue home medications. Monitor vitals per admission order Qualifiers: Hypertension type: essential hypertension Qualified Code(s): I10 - Essential (primary) hypertension (8) ELIZABETH on CPAP Current Visit: Yes Status: Chronic Assessment and plan: Chronic. Continue CPAP. - Time Spent With Patient less than 15 minutes - Subjective Interval history: Pt was seen and assessed at 1235 pm. Pt is alert, oriented, interactive. States that he still is not feeling well and reports continued fatigue. Pt still on 4L 02, states that he does not need 02 at home. Pt denies chest pain other than with inspiration "sometimes", he states that he still has a headache from nitro paste in the er last night. Pt Denies n/v/d or abdominal pain. Pt will likely be here for at least 2 more days, he verbalizes understanding. - Constitutional Vitals: Temp Pulse Resp BP Pulse Ox 98.0 F 58 16 165/87 98 10/18/17 10:50 10/18/17 10:50 10/18/17 11:54 10/18/17 10:50 10/18/17 11:54 General appearance: Present: cooperative, A&O X 3, pleasant, no acute distress, obese, answers questions appropriately - Head Head exam: Present: atraumatic, normal inspection, normocephalic - Eye Eye exam: Present: normal appearance, conjuntiva pink, sclera anicteric - Neck Neck exam general surgery: Present: supple, trachea midline. Absent: lymphadenopathy, tenderness - Respiratory Respiratory exam: Present: CTAB, wheezes. Absent: accessory muscle use, chest wall tenderness, rales, respiratory distress, rhonchi - Cardiovascular Cardiovascular exam: Present: RRR, +S1, +S2. Absent: diastolic murmur, gallop, rubs, systolic murmur - GI/Abdominal GI/Abdominal exam: Present: normal bowel sounds, soft. Absent: distended, hepatomegaly, tenderness - Extremities Exam Extremities exam: Present: normal capillary refill, normal inspection, warm, radial pulses palpable and symmetrical. Absent: calf tenderness, cyanotic, pedal edema, tenderness - Neurological Exam Neurological exam: Present: alert, oriented X3, no focal deficits. Absent: facial droop, speech deficit - Skin Skin exam: Present: dry, intact, normal color, warm. Absent: rash Internal Medicine: Result - Labs CBC & Chem 7: 10/18/17 01:09 10/18/17 01:09 Labs: Cardiac Enzymes 10/18/17 Range/Units 07:02 Troponin I < 0.03 (< 0.04) ng/mL Consult Discharge Plan - Plan Referrals: Rangel Puentes DO [Primary Care Provider] -
[2017-10-18] MEDS: predniSONE 20 MG TABLET PO SCH (16:29)
[2017-10-19] MEDS: Ipratropium/Albuterol Neb 3 ML IH SCH ×4 (04:10→23:27)
[2017-10-19] MEDS: *HR* OxyCODONE/APAP 10/325 TABLET PO PRN ×3 (05:22→20:28)
[2017-10-19] MEDS: *HR* Heparin 5,000 UNIT/ML VIAL SQ SCH ×2 (05:23→18:01)
[2017-10-19 07:48] LABS: BUN/Creatinine Ratio 32 (6-26); Blood Urea Nitrogen 30 mg/dL (6-20); Calcium 8.6 mg/dL (8.6-10.3); Carbon Dioxide 26 mEq/L (23-29); Chloride 109 mEq/L (98-107); Glucose 156 mg/dL (70-105); Osmolality,Calculated 299 (280-300); Potassium 4.1 mEq/L (3.5-5.1); Sodium 140 mEq/L (136-145); eGFR For African Americans > 60 (> 60); eGFR For Non-African Americans > 60 (> 60)
[2017-10-19 07:57] LABS: Basophils % 0.2 %; Hematocrit 38.1 % (37.5-50.1); Hemoglobin 12.1 g/dL (12.9-16.9); Immature Granulocytes % 0.7 % (0-4); Lymphocytes # 0.9 K/mcL (0.6-4.6); Lymphocytes % 7.4 %; Mean Corpuscular HGB Conc 31.8 g/dL (31.6-35.5); Mean Corpuscular Hemoglobin 26.5 pg (28.0-33.3); Mean Corpuscular Volume 83.4 fL (83.0-100.0); Mean Platelet Volume 10.8 fL (9.4-12.4); Monocytes # 0.7 K/mcL (0.0-1.3); Monocytes % 5.7 %; Neutrophils # 10.7 K/mcL (1.6-8.9); Platelet Count 189 K/mcL (140-400); Red Blood Count 4.57 M/mcL (4.19-5.50); Red Cell Distribution Width 16.4 % (11.5-14.5)
[2017-10-19] MEDS: predniSONE 20 MG TABLET PO SCH (09:58)
[2017-10-19] MEDS: Cefepime HCl 1,000 MG in Water for inj. (sterile) 20 ML 10 ML IVP SCH (09:58)
[2017-10-19] MEDS: Multivit/Ca/Min/Fe/FA 1 TAB TABLET PO SCH (09:59)
[2017-10-19] MEDS: Lisinopril 20 MG TABLET PO SCH (09:59)
[2017-10-19] MEDS: Pregabalin 75 MG CAPSULE PO SCH ×2 (09:59→21:26)
[2017-10-19] MEDS: Furosemide 40 MG TABLET PO SCH ×2 (09:59→21:26)
[2017-10-19] MEDS: Budesonide/Formoterol 80/4.5 MDI IH SCH ×2 (10:43→23:27)
[2017-10-19] MEDS: (Breo Ellipta 100-25 Mcg Inh) IH SCH (10:43)
[2017-10-19] MEDS: Tiotropium 18 MCG inhalation IH SCH (10:44)
--- NOTE | 2017-10-19 10:47 | Internal Med Progress Note ---
Date of Encounter: 10/19/17 Time of Encounter: 09:25 - Assessment and plan (1) Obesity (BMI 30-39.9) Current Visit: Yes Status: Chronic Assessment and plan: Encourage lifestyle modifications (2) Chest pain Current Visit: Yes Status: Acute Assessment and plan: Chest pain is reproducible with palpation and deep inspiration. Continue treat pneumonia, patient is allergic to NSAIDs. Tylenol for chest pain, continue antibiotics, oxygen as needed. Antitussive for cough. Qualifiers: Chest pain type: chest pain on breathing Qualified Code(s): R07.1 - Chest pain on breathing; R07.81 - Pleurodynia (3) COPD (chronic obstructive pulmonary disease) Current Visit: Yes Status: Chronic Assessment and plan: Mild exacerbation. Patient with wheezing and posterior bases. Still denies cough. Continue antibiotics Continue DuoNeb's Continue Spiriva Prednisone 40 mg by mouth daily 02 prn, maintain sats > 92% Qualifiers: COPD type: emphysema Emphysema type: other Qualified Code(s): J43.8 - Other emphysema (4) DVT prophylaxis Current Visit: Yes Status: Acute Assessment and plan: Heparin SQ BID> (5) HCAP (healthcare-associated pneumonia) Current Visit: Yes Status: Acute Assessment and plan: Continue vancomycin and cefepime IV. Continue duo nebs, Symbicort, Spiriva. Prednisone 40 mg by mouth daily as needed for wheezing and mild acute exacerbation of COPD. Continue telemetry Continue to monitor vital signs patient condition. Blood cultures are negative. Pt did not have bacterial pneumonia last visit, pt was diagnosed with RSV and antibiotics were stopped. Will stop Vancomycin and deescalate Cefepime to Cefdinir 300mg po bid x 10 days. (6) Hypertension Current Visit: Yes Status: Chronic Assessment and plan: Stable. Continue home medications. Qualifiers: Hypertension type: essential hypertension Qualified Code(s): I10 - Essential (primary) hypertension (7) ELIZABETH on CPAP Current Visit: Yes Status: Chronic Assessment and plan: Continue BiPAP. (8) Diastolic CHF, chronic Current Visit: Yes Status: Chronic Assessment and plan: No acute exacerbation. Patient remains euvolemic. Continue home dose of Lasix Continue telemetry - Time Spent With Patient less than 15 minutes - Subjective Interval history: Pt was seen and assessed at 0925 am. Pt is alert, oriented, interactive. States that he still is not feeling well and reports continued fatigue, is mildly improved since yesterday. Pt on BiPAP, he was sleeping. Pt denies chest pain. Pt Denies n/v/d or abdominal pain. Will likely discharge tomorrow, he verbalizes understanding. Patient has remained wheezy and states that he is feeling somewhat better - Constitutional Vitals: Temp Pulse Resp BP Pulse Ox 97.6 F 50 16 151/67 100 10/19/17 07:36 10/19/17 07:36 10/19/17 07:36 10/19/17 07:36 10/19/17 07:36 General appearance: Present: cooperative, A&O X 3, pleasant, no acute distress, obese, answers questions appropriately - Head Head exam: Present: atraumatic, normal inspection, normocephalic - Eye Eye exam: Present: normal appearance, conjuntiva pink, sclera anicteric - Neck Neck exam general surgery: Present: normal inspection, supple, trachea midline. Absent: lymphadenopathy - Respiratory Respiratory exam: Present: chest wall tenderness, decreased breath sounds, wheezes. Absent: accessory muscle use, CTAB, rales, respiratory distress, rhonchi - Cardiovascular Cardiovascular exam: Present: RRR, +S1, +S2. Absent: diastolic murmur, gallop, rubs, systolic murmur - GI/Abdominal GI/Abdominal exam: Present: normal bowel sounds, soft. Absent: distended, hepatomegaly, tenderness - Extremities Exam Extremities exam: Present: normal capillary refill, normal inspection, warm. Absent: calf tenderness, cyanotic, pedal edema - Neurological Exam Neurological exam: Present: alert, oriented X3, no focal deficits. Absent: facial droop, speech deficit - Skin Skin exam: Present: dry, intact, normal color, warm. Absent: rash Internal Medicine: Result - Labs CBC & Chem 7: 10/19/17 06:39 10/19/17 06:39 Labs: Short CBC 10/19/17 Range/Units 06:39 WBC 12.5 H (4.3-11.1) K/mcL Hgb 12.1 L (12.9-16.9) g/dL Hct 38.1 (37.5-50.1) % Plt Count 189 (140-400) K/mcL Neutrophils # 10.7 H (1.6-8.9) K/mcL BMP 10/19/17 06:39 Sodium 140 Potassium 4.1 Chloride 109 H Carbon Dioxide 26 BUN 30 H Creatinine 0.94 Glucose 156 H Calcium 8.6 Consult Discharge Plan - Plan Additional Instructions: Please follow up with your PCP in the next 7-10 days for a follow up visit. Take your medications exactly as directed. Return to the ER as needed for any other problems or concerns, or if your symptoms return or worsen. Return to your normal diet and activities as tolerated. Referrals: Rangel Puentes DO [Primary Care Provider] - Prescriptions: Ipratropium/Albuterol Neb [Duoneb] 3 ml IH [id number] #[id number] inhsol Cefdinir [Omnicef] 300 mg PO BID #18 capsule predniSONE [PredniSONE] 10 mg PO DAILY #20 tablet
[2017-10-19] MEDS ORDERED: Melatonin 3 MG TABLET PO ONE (21:00)
[2017-10-19] MEDS: traZODone 50 MG TABLET PO SCH (21:26)
[2017-10-19] MEDS: Cefdinir 300 MG CAPSULE PO SCH (21:26)
[2017-10-20] MEDS: Ipratropium/Albuterol Neb 3 ML IH SCH ×2 (03:18→09:44)
[2017-10-20] MEDS: *HR* Heparin 5,000 UNIT/ML VIAL SQ SCH (06:11)
[2017-10-20 06:47] LABS: Basophils % 0.3 %; Eosinophils # 0.1 K/mcL (0.0-0.6); Eosinophils % 0.5 %; Hematocrit 38.5 % (37.5-50.1); Hemoglobin 12.2 g/dL (12.9-16.9); Immature Granulocytes % 1.5 % (0-4); Lymphocytes # 1.7 K/mcL (0.6-4.6); Mean Corpuscular HGB Conc 31.7 g/dL (31.6-35.5); Mean Corpuscular Hemoglobin 26.4 pg (28.0-33.3); Mean Corpuscular Volume 83.3 fL (83.0-100.0); Mean Platelet Volume 10.6 fL (9.4-12.4); Monocytes # 0.8 K/mcL (0.0-1.3); Neutrophils # 7.2 K/mcL (1.6-8.9); Platelet Count 217 K/mcL (140-400); Red Blood Count 4.62 M/mcL (4.19-5.50); Red Cell Distribution Width 16.3 % (11.5-14.5); Segmented Neutrophils % 72.7 %
[2017-10-20 06:54] LABS: BUN/Creatinine Ratio 30 (6-26); Blood Urea Nitrogen 31 mg/dL (6-20); Calcium 8.8 mg/dL (8.6-10.3); Carbon Dioxide 26 mEq/L (23-29); Chloride 109 mEq/L (98-107); Glucose 110 mg/dL (70-105); Osmolality,Calculated 297 (280-300); Potassium 3.7 mEq/L (3.5-5.1); Sodium 140 mEq/L (136-145); eGFR For African Americans > 60 (> 60); eGFR For Non-African Americans > 60 (> 60)
[2017-10-20] MEDS: *HR* OxyCODONE/APAP 10/325 TABLET PO PRN (09:30)
[2017-10-20] MEDS: Furosemide 40 MG TABLET PO SCH (09:30)
[2017-10-20] MEDS: predniSONE 20 MG TABLET PO SCH (09:30)
[2017-10-20] MEDS: Cefdinir 300 MG CAPSULE PO SCH (09:30)
[2017-10-20] MEDS: Lisinopril 20 MG TABLET PO SCH (09:30)
[2017-10-20] MEDS: Pregabalin 75 MG CAPSULE PO SCH (09:31)
[2017-10-20] MEDS: Multivit/Ca/Min/Fe/FA 1 TAB TABLET PO SCH (09:31)
[2017-10-20] MEDS: Budesonide/Formoterol 80/4.5 MDI IH SCH (09:46)
[2017-10-20] MEDS: Tiotropium 18 MCG inhalation IH SCH (09:51)
[2017-10-20] MEDS: (Breo Ellipta 100-25 Mcg Inh) IH SCH (09:52)
--- NOTE | 2017-10-20 11:03 | Discharge Summary ---
Date of Encounter: 10/20/17 Time of Encounter: 08:35 - Discharge Diagnosis (1) Obesity (BMI 30-39.9) Priority: Secondary Status: Chronic Comments: Chronic. Implement lifestyle modifications. (2) Chest pain Priority: Secondary Status: Acute Comments: Pt reports improvement in overall condition and states that his chest pain is better. Mild discomfort with deep inspiration and palpation to anterior chest. Tylenol for chest pain as needed. Continue to treat pna to resolution Qualifiers: Chest pain type: chest pain on breathing Qualified Code(s): R07.1 - Chest pain on breathing; R07.81 - Pleurodynia (3) COPD (chronic obstructive pulmonary disease) Priority: Secondary Status: Chronic Comments: Mild exacerbation, improving. Lungs diminished througout, no wheezing, rales, ronchi, or respiratory distress. He was able to be weaned from 02. Continue antibiotics Duonebs at home prn Continue Spiriva Continue prednisone taper Qualifiers: COPD type: emphysema Emphysema type: other Qualified Code(s): J43.8 - Other emphysema (4) DVT prophylaxis Priority: Secondary Status: Acute Comments: Heparin SQ daily (5) HCAP (healthcare-associated pneumonia) Priority: Secondary Status: Acute Comments: Cefdinir 300mg po bid x 10 days Continue home medications. Follow with PCP in the next 7-10 days for reevaluation (6) Hypertension Priority: Secondary Status: Chronic Comments: BP well controlled. Continue home medications. Qualifiers: Hypertension type: essential hypertension Qualified Code(s): I10 - Essential (primary) hypertension (7) ELIZABETH on CPAP Priority: Secondary Status: Chronic Comments: Continue BiPap at home. (8) Diastolic CHF, chronic Priority: Secondary Status: Chronic Comments: No acute exacerbation. Pt is euvolemic. Continue Lasix. Hospital course: Mr. Beth is a 47 year old male with PMH of HTN, ELIZABETH with CPAP, diastolic CHF , Obesity, and COPD. Pt presented to the ED with c/o shortness of breath that started 3 days prior to arrival. Pt reported productive cough with greenish and yellow sputum and URI symptoms. Pt also reported anterior chest pain with deep inspiration, also with palpation on physical exam. Chest xray showed RML pneumonia. Pt was admitted and treated with IV Cefepime and Vancomycin. Troponins were negative, chest CTA was negative for PE, also noted was consolidation right middle lobe. Patient received DuoNebs, Solu- Medrol, and patient improved over time of admission. He reports improvement with chest pain today, states it is improved though he still has some dull chest pain on the right side with inspiration. During last visit, patient was treated for viral pneumonia, RSV and COPD exacerbation. Antibiotics were stopped and he was treated symptomatically and for his COPD exacerbation. Pt is without leukocytosis, fever. Pt states that he is feeling better and is ready for discharge. He is stable and appropriate for discharge with close follow up with PCP. Discharge discussed with: patient - Time Spent with Patient Total time spent providing and/or coordinating discharge services: Less than 30 minutes - Discharge Medications Prescriptions: Ipratropium/Albuterol Neb [Duoneb] 3 ml IH [id number] #40 inhsol Cefdinir [Omnicef] 300 mg PO BID #18 capsule predniSONE [PredniSONE] 10 mg PO DAILY #20 tablet Home Medications: Albuterol Sulfate [Albuterol Inhaler] 2 puff IH Q4H PRN 03/26/15 [History] Lisinopril [Zestril] 20 mg PO DAILY 03/26/15 [History] Metoprolol [Lopressor] 50 mg PO BID 03/26/15 [History] Multivitamin/Iron/Folic Acid [Centrum Complete Multivit Tab] 1 each PO DAILY [History] Potassium Chloride 20 meq PO DAILY 03/26/15 [History] Pregabalin [Lyrica] 150 mg PO BID 03/26/15 [History] Fluticasone/Salmeterol [Advair 250-50 Diskus] 1 each IH BID 09/15/16 [History] Tiotropium [Spiriva] 18 mcg IH DAILY 09/15/16 [History] Trazodone HCl 150 mg PO HS 09/15/16 [History] Allopurinol [Zyloprim] 300 mg PO DAILY 09/25/17 [History] Atorvastatin Calcium [Lipitor] 20 mg PO HS 09/25/17 [History] Fluticasone/Vilanterol [Breo Ellipta 100-25 Mcg INH] 1 each IH DAILY 09/25/17 [ History] Furosemide [Lasix] 40 mg PO BID 09/25/17 [History] Morphine Sulfate/Naltrexone [Embeda ER 30-1.2 mg Capsule] 1 each PO BID [History] Omeprazole [PriLOSEC] 20 mg PO DAILY 09/25/17 [History] OxyCODONE/APAP 10/325 [Percocet 10/325 MG] 1 each PO Q6H PRN 09/25/17 [History] Sertraline [Zoloft] 100 mg PO DAILY 09/25/17 [History] Cefdinir [Omnicef] 300 mg PO BID #18 capsule 10/19/17 [Rx] Ipratropium/Albuterol Neb [Duoneb] 3 ml IH [id number] #40 inhsol 10/19/17 [Rx] predniSONE [PredniSONE] 10 mg PO DAILY #20 tablet 10/19/17 [Rx] Allergies/Adverse Reactions: 3 Allergy/AdvReac Type Severity Reaction Status Date / Time hydrocodone [From Lortab] AdvReac Vomiting Verified 10/29/16 15:08 morphine AdvReac Headache Verified 10/29/16 15:08 NSAIDS (Non-Steroidal AdvReac Nausea Verified 10/29/16 15:08 Anti-Inflamma Date of admission: 10/18/17 03:44 Primary care physician: Rangel Puentes, Discharging clinician: Casie Cotter Anticipated date of discharge: 10/20/17 - Constitutional Vitals: Temp Pulse Resp BP Pulse Ox 98.0 F 57 16 150/82 99 10/20/17 08:14 10/20/17 08:14 10/20/17 08:14 10/20/17 08:14 10/20/17 08:14 General appearance: Present: cooperative, A&O X 3, pleasant, no acute distress, obese, answers questions appropriately - Head Head exam: Present: atraumatic, normal inspection, normocephalic - Eye Eye exam: Present: normal appearance, conjuntiva pink, sclera anicteric - Neck Neck exam general surgery: Present: supple, trachea midline. Absent: lymphadenopathy - Respiratory Respiratory exam: Present: chest wall tenderness, decreased breath sounds, CTAB. Absent: accessory muscle use, rales, respiratory distress, rhonchi, wheezes - Cardiovascular Cardiovascular exam: Present: RRR, +S1, +S2. Absent: diastolic murmur, gallop, rubs, systolic murmur - GI/Abdominal GI/Abdominal exam: Present: normal bowel sounds, soft. Absent: distended, hepatomegaly, tenderness - Extremities Exam Extremities exam: Present: normal capillary refill, normal inspection, warm, radial pulses palpable and symmetrical. Absent: calf tenderness, cyanotic, pedal edema, tenderness - Neurological Exam Neurological exam: Present: alert, oriented X3, no focal deficits. Absent: strengths equal and symetr throughout, facial droop, speech deficit - Skin Skin exam: Present: dry, intact, normal color, warm. Absent: rash - Patient Status Disposition: Home, Self-Care Condition: Good Functional capacity at discharge: independent ambulation Overall status at discharge: patient is progressing back to baseline - Discharge Instructions Follow Up With: Rangel Puentes DO [Primary Care Provider] - Additional Instructions: Please follow up with your PCP in the next 7-10 days for a follow up visit. Take your medications exactly as directed. Return to the ER as needed for any other problems or concerns, or if your symptoms return or worsen. Return to your normal diet and activities as tolerated. - Diet and Activity Activity: increase activity as tolerated Diet: advance to your usual diet
[2017-10-20 11:47] VITALS: BP 153/80
[2017-10-20] MEDS ORDERED: Aminoglycoside Consult 1 EACH MC ONE (12:59)
--- NOTE | 2017-10-23 08:10 | Electrocardiograph Report ---
[address] [place], [place] [address] Test Date: 2017-10-17 Pat Name: Aftab Beth Department: 104 Room: 3B Gender: M Ticket Sales Agent: NILA : 1970 Requested By: Larry Do Order Number: [id number] Reading MD: Linden Mariee DO Measurements Intervals [place] Rate: 78 P: 5 MS: 158 QRS: -46 QRSD: 94 T: 0 QT: 401 QTc: 435 Interpretive Statements SINUS RHYTHM WITH OCCASIONAL SUPRAVENTRICULAR PREMATURE COMPLEXES MARKED LEFT AXIS DEVIATION POSSIBLE ANTERIOR MYOCARDIAL INFARCTION, OF INDETERMINATE AGE Electronically Signed On 10-23-2017 7:59:47 EDT by Linden Mariee DO
== END 2017-10-20 13:00 | disposition home or self-care (01) | DRG 194 ==
LOC: 3BNU 15:35 → EMEROO 15:35 → 3BNU 22:21
PROVIDERS: ADMIT Registered Nurse; ATTEND Registered Nurse

== ENCOUNTER 2021-10-09 18:58 | Observation (INO) ==
[2021-10-09] MEDS ORDERED: Isovue-370 500 ML BOTTLE IVP ONE (20:48)
[2021-10-09 21:02] LABS: Basophils # 0.1 K/mcL (0.0-0.2); Basophils % 1.2 %; Eosinophils # 0.4 K/mcL (0.0-0.6); Eosinophils % 4.5 %; Hematocrit 41.5 % (37.5-50.1); Immature Granulocytes % 0.9 % (0-4); Lymphocytes % 21.5 %; Mean Corpuscular HGB Conc 31.3 g/dL (31.6-35.5); Mean Corpuscular Hemoglobin 27.3 pg (28.0-33.3); Mean Platelet Volume 11.2 fL (9.4-12.4); Monocytes # 1.1 K/mcL (0.0-1.3); Monocytes % 12.2 %; Neutrophils # 5.6 K/mcL (1.6-8.9); Platelet Count 159 K/mcL (140-400); Red Blood Count 4.77 M/mcL (4.19-5.50); Segmented Neutrophils % 59.7 %; White Blood Count 9.4 K/mcL (4.3-11.1)
[2021-10-09 21:13] LABS: Alanine Aminotransferase 12 Units/L (7-52); Albumin/Globulin Ratio 1.4 (1.1-2.2); Alkaline Phosphatase 92 Units/L (34-104); Aspartate Amino Transferase 14 Units/L (13-39); BUN/Creatinine Ratio 15 (6-26); Bilirubin,Total 0.8 mg/dL (0.3-1.0); Blood Urea Nitrogen 15 mg/dL (6-20); Carbon Dioxide 34 mEq/L (23-29); Chloride 101 mEq/L (98-107); Globulin 2.8 g/dL (2.4-3.5); Glucose 85 mg/dL (70-105); Osmolality,Calculated 292 (280-300); Potassium 3.1 mEq/L (3.5-5.1); Sodium 141 mEq/L (136-145); Total Protein 6.8 g/dL (6.4-8.9); eGFR For African Americans > 60 (> 60); eGFR For Non-African Americans > 60 (> 60)
[2021-10-09 21:40] LABS: INR 2.4; Prothrombin Time 27.1 Seconds (9.4-12.1)
[2021-10-09 21:42] LABS: Activated Partial Thrombo Time 48.6 Seconds (26.0-36.0)
[2021-10-09] MEDS ORDERED: Pantoprazole 40 MG VIAL IVP ONE (22:33)
[2021-10-09] MEDS ORDERED: Melatonin 3 MG TABLET PO PRN (23:12)
[2021-10-09] MEDS ORDERED: *HR* HYDROcodone/Acet 5/325 mg TABLET PO PRN (23:12)
[2021-10-09] MEDS ORDERED: Acetaminophen 325 MG TABLET PO PRN (23:12)
[2021-10-09] MEDS ORDERED: Naloxone 0.4 MG/ML INJ IVP PRN (23:12)
[2021-10-09] MEDS ORDERED: Ondansetron 4 MG/2 ML VIAL IVP PRN (23:12)
[2021-10-10] MEDS: Ringers Solution, Lactated 1,000 ML IVC SCH ×2 (00:58→15:25)
[2021-10-10] MEDS: Pantoprazole 40 MG VIAL IVP SCH ×2 (05:39→18:12)
[2021-10-10 05:46] LABS: Basophils # 0.1 K/mcL (0.0-0.2); Eosinophils # 0.5 K/mcL (0.0-0.6); Eosinophils % 5.7 %; Hematocrit 35.7 % (37.5-50.1); Hemoglobin 11.4 g/dL (12.9-16.9); Immature Granulocytes % 0.6 % (0-4); Lymphocytes # 1.3 K/mcL (0.6-4.6); Lymphocytes % 15.9 %; Mean Corpuscular HGB Conc 31.9 g/dL (31.6-35.5); Mean Corpuscular Hemoglobin 27.5 pg (28.0-33.3); Mean Corpuscular Volume 86.2 fL (83.0-100.0); Mean Platelet Volume 10.2 fL (9.4-12.4); Monocytes # 0.9 K/mcL (0.0-1.3); Monocytes % 10.4 %; Neutrophils # 5.6 K/mcL (1.6-8.9); Platelet Count 141 K/mcL (140-400); Red Blood Count 4.14 M/mcL (4.19-5.50); Red Cell Distribution Width 16.9 % (11.5-14.5); Segmented Neutrophils % 66.4 %; White Blood Count 8.4 K/mcL (4.3-11.1)
[2021-10-10 06:12] LABS: Alanine Aminotransferase 9 Units/L (7-52); Albumin 3.3 g/dL (3.5-5.7); Albumin/Globulin Ratio 1.4 (1.1-2.2); Alkaline Phosphatase 74 Units/L (34-104); Aspartate Amino Transferase 12 Units/L (13-39); BUN/Creatinine Ratio 16 (6-26); Bilirubin,Total 0.9 mg/dL (0.3-1.0); Blood Urea Nitrogen 15 mg/dL (6-20); Calcium 8.3 mg/dL (8.6-10.3); Carbon Dioxide 35 mEq/L (23-29); Chloride 102 mEq/L (98-107); Globulin 2.3 g/dL (2.4-3.5); Glucose 96 mg/dL (70-105); Magnesium 1.4 mg/dL (1.6-2.6); Osmolality,Calculated 295 (280-300); Potassium 3.2 mEq/L (3.5-5.1); Sodium 142 mEq/L (136-145); Total Protein 5.6 g/dL (6.4-8.9); eGFR For African Americans > 60 (> 60); eGFR For Non-African Americans > 60 (> 60)
[2021-10-10 06:17] LABS: INR 2.2; Prothrombin Time 24.7 Seconds (9.4-12.1)
[2021-10-10] MEDS ORDERED: Albuterol 2.5 MG/3 ML NEBULIZER IH PRN (09:12)
[2021-10-10] MEDS: *HR* OxyCODONE Immed Rel 5 MG TABLET PO PRN ×3 (09:31→22:28)
[2021-10-10] MEDS ORDERED: SODIUM CHLORIDE/NAHCO3/KCL/PEG 4,000 ML SOLN.RECON PO ONE (17:00)
[2021-10-10] MEDS: carvediloL 6.25 MG TABLET PO SCH (18:11)
[2021-10-10] MEDS: Budesonide/Formoterol 80/4.5 1 PUFF INH IH SCH (20:02)
[2021-10-11 04:35] LABS: Basophils # 0.1 K/mcL (0.0-0.2); Basophils % 0.8 %; Eosinophils # 0.4 K/mcL (0.0-0.6); Eosinophils % 4.7 %; Hematocrit 36.2 % (37.5-50.1); Hemoglobin 11.7 g/dL (12.9-16.9); Immature Granulocytes % 0.7 % (0-4); Lymphocytes # 1.5 K/mcL (0.6-4.6); Lymphocytes % 17.4 %; Mean Corpuscular HGB Conc 32.3 g/dL (31.6-35.5); Mean Corpuscular Hemoglobin 27.3 pg (28.0-33.3); Mean Corpuscular Volume 84.6 fL (83.0-100.0); Mean Platelet Volume 10.1 fL (9.4-12.4); Monocytes # 0.9 K/mcL (0.0-1.3); Monocytes % 10.6 %; Neutrophils # 5.5 K/mcL (1.6-8.9); Platelet Count 145 K/mcL (140-400); Red Blood Count 4.28 M/mcL (4.19-5.50); Red Cell Distribution Width 16.8 % (11.5-14.5); Segmented Neutrophils % 65.8 %; White Blood Count 8.3 K/mcL (4.3-11.1)
[2021-10-11 04:56] LABS: Alanine Aminotransferase 9 Units/L (7-52); Albumin 3.4 g/dL (3.5-5.7); Albumin/Globulin Ratio 1.4 (1.1-2.2); Alkaline Phosphatase 74 Units/L (34-104); Aspartate Amino Transferase 12 Units/L (13-39); BUN/Creatinine Ratio 15 (6-26); Bilirubin,Total 1.1 mg/dL (0.3-1.0); Blood Urea Nitrogen 11 mg/dL (6-20); Calcium 8.3 mg/dL (8.6-10.3); Carbon Dioxide 31 mEq/L (23-29); Chloride 102 mEq/L (98-107); Globulin 2.5 g/dL (2.4-3.5); Glucose 94 mg/dL (70-105); Osmolality,Calculated 287 (280-300); Potassium 3.2 mEq/L (3.5-5.1); Sodium 139 mEq/L (136-145); Total Protein 5.9 g/dL (6.4-8.9); eGFR For African Americans > 60 (> 60); eGFR For Non-African Americans > 60 (> 60)
[2021-10-11] MEDS: Pantoprazole 40 MG VIAL IVP SCH ×2 (06:52→17:39)
[2021-10-11] MEDS ORDERED: *HR* Midazolam HCl 5 MG/5 ML VIAL IVP ONE (07:27)
[2021-10-11] MEDS ORDERED: *HR* FentaNYL (PF) 100 MCG/2 ML VIAL ONE (07:27)
[2021-10-11] MEDS ORDERED: Tiotropium 10 INH DOSE IH ONE (07:39)
[2021-10-11] MEDS ORDERED: NON-FORMULARY MEDICATION 1 EACH EACH (Fluticasone Propion/Salmeterol [Wixela 250-50 Inhub] IH SCH (09:00)
[2021-10-11] MEDS: Furosemide 40 MG TABLET PO SCH (09:51)
[2021-10-11] MEDS: carvediloL 6.25 MG TABLET PO SCH ×2 (10:14→15:18)
[2021-10-11] MEDS: Tiotropium 10 INH DOSE IH SCH (11:13)
[2021-10-11] MEDS: Budesonide/Formoterol 80/4.5 1 PUFF INH IH SCH ×2 (11:13→20:16)
[2021-10-11] MEDS: lisinopriL 5 MG TABLET PO SCH (11:21)
[2021-10-11] MEDS: *HR* OxyCODONE Immed Rel 5 MG TABLET PO PRN ×2 (13:51→20:22)
[2021-10-11] MEDS: Pregabalin 75 MG CAPSULE PO SCH (21:50)
[2021-10-12] MEDS: *HR* OxyCODONE Immed Rel 5 MG TABLET PO PRN ×2 (02:26→08:32)
[2021-10-12 03:45] VITALS: O2SAT 90
[2021-10-12] MEDS: Pantoprazole 40 MG VIAL IVP SCH (06:29)
[2021-10-12 07:03] LABS: Basophils # 0.1 K/mcL (0.0-0.2); Basophils % 0.5 %; Eosinophils # 0.1 K/mcL (0.0-0.6); Hematocrit 37.4 % (37.5-50.1); Hemoglobin 12.1 g/dL (12.9-16.9); Immature Granulocytes % 0.5 % (0-4); Lymphocytes # 1.3 K/mcL (0.6-4.6); Lymphocytes % 11.2 %; Mean Corpuscular HGB Conc 32.4 g/dL (31.6-35.5); Mean Corpuscular Hemoglobin 27.7 pg (28.0-33.3); Mean Corpuscular Volume 85.6 fL (83.0-100.0); Mean Platelet Volume 10.1 fL (9.4-12.4); Monocytes # 1.2 K/mcL (0.0-1.3); Monocytes % 11.1 %; Neutrophils # 8.4 K/mcL (1.6-8.9); Platelet Count 165 K/mcL (140-400); Red Blood Count 4.37 M/mcL (4.19-5.50); Segmented Neutrophils % 75.7 %; White Blood Count 11.1 K/mcL (4.3-11.1)
[2021-10-12 07:48] LABS: Alanine Aminotransferase 9 Units/L (7-52); Albumin 3.7 g/dL (3.5-5.7); Albumin/Globulin Ratio 1.5 (1.1-2.2); Alkaline Phosphatase 76 Units/L (34-104); Aspartate Amino Transferase 16 Units/L (13-39); BUN/Creatinine Ratio 14 (6-26); Bilirubin,Total 1.2 mg/dL (0.3-1.0); Blood Urea Nitrogen 15 mg/dL (6-20); Calcium 8.4 mg/dL (8.6-10.3); Carbon Dioxide 29 mEq/L (23-29); Chloride 102 mEq/L (98-107); Globulin 2.5 g/dL (2.4-3.5); Glucose 132 mg/dL (70-105); Osmolality,Calculated 289 (280-300); Potassium 3.9 mEq/L (3.5-5.1); Sodium 138 mEq/L (136-145); Total Protein 6.2 g/dL (6.4-8.9); eGFR For African Americans > 60 (> 60); eGFR For Non-African Americans > 60 (> 60)
[2021-10-12 07:51] VITALS: BP 153/99; PULSE 95; TEMP 98
[2021-10-12] MEDS: Budesonide/Formoterol 80/4.5 1 PUFF INH IH SCH (08:04)
[2021-10-12] MEDS: Tiotropium 10 INH DOSE IH SCH (08:04)
[2021-10-12] MEDS: carvediloL 6.25 MG TABLET PO SCH (08:32)
[2021-10-12] MEDS: Furosemide 40 MG TABLET PO SCH (08:33)
[2021-10-12] MEDS: Pregabalin 75 MG CAPSULE PO SCH (08:33)
[2021-10-12] MEDS: lisinopriL 5 MG TABLET PO SCH (08:33)
[2021-10-12] MEDS ORDERED: Pramoxine 15 GM FOAM Package TP SCH (09:00)
== END 2021-10-12 09:43 | disposition home or self-care (01) ==
LOC: EMEROOARM 18:58 → 3ANU 18:58
PROVIDERS: ADMIT Family Medicine; ATTEND Family Medicine

== ENCOUNTER 2022-01-17 14:59 | Inpatient (IN) ==
[2022-01-17] MEDS ORDERED: Naloxone 0.4 MG/ML INJ IVP PRN (20:37)
[2022-01-17] MEDS ORDERED: Perflutren Lipid Microsphere 1.3 ML in 0.9 % Sodium Chloride 8.7 ML IVP PRN (21:50)
[2022-01-17] MEDS: Morphine Sulfate ER (12 HR) 60 MG TABLET.ER PO SCH (22:26)
[2022-01-17 22:43] LABS: Adenovirus Not Detected (Not Detect); Bordetella Pertussis Not Detected (Not Detect); Chlamydophila pneumoniae Not Detected (Not Detect); Coronavirus 229E Not Detected (Not Detect); Coronavirus HKU1 Not Detected (Not Detect); Coronavirus NL63 Not Detected (Not Detect); Coronavirus OC43 Not Detected (Not Detect); Human Metapneumovirus Not Detected (Not Detect); Human Rhinovirus/Enterovirus Not Detected (Not Detect); Influenza A Subtype 2009 H1 Not Detected (Not Detect); Influenza B Not Detected (Not Detect); Mycoplasma pneumoniae Not Detected (Not Detect); Parainfluenza Virus 1 Not Detected (Not Detect); Parainfluenza Virus 2 Not Detected (Not Detect); Parainfluenza Virus 3 Not Detected (Not Detect); Parainfluenza Virus 4 Not Detected (Not Detect); Respiratory Syncytial Virus Not Detected (Not Detect); SARS-CoV-2 Not Detected (Not Detect)
[2022-01-18] MEDS ORDERED: Albuterol 2.5 MG/3 ML NEBULIZER IH PRN (01:39)
[2022-01-18] MEDS: *HR* OxyCODONE/APAP 10/325 TABLET PO PRN ×3 (01:49→18:32)
[2022-01-18 07:07] LABS: INR 1.4; Prothrombin Time 15.3 Seconds (9.4-12.1)
[2022-01-18 07:11] LABS: Basophils # 0.1 K/mcL (0.0-0.2); Basophils % 1.1 %; Eosinophils # 0.2 K/mcL (0.0-0.6); Eosinophils % 3.9 %; Hematocrit 32.3 % (37.5-50.1); Hemoglobin 8.6 g/dL (12.9-16.9); Immature Granulocytes % 0.3 % (0-4); Lymphocytes # 1.1 K/mcL (0.6-4.6); Lymphocytes % 17.8 %; Mean Corpuscular HGB Conc 26.6 g/dL (31.6-35.5); Mean Corpuscular Hemoglobin 20.1 pg (28.0-33.3); Mean Corpuscular Volume 75.6 fL (83.0-100.0); Mean Platelet Volume 10.8 fL (9.4-12.4); Monocytes # 0.8 K/mcL (0.0-1.3); Monocytes % 12.2 %; Platelet Count 170 K/mcL (140-400); Red Blood Count 4.27 M/mcL (4.19-5.50); Red Cell Distribution Width 19.4 % (11.5-14.5); Segmented Neutrophils % 64.7 %; White Blood Count 6.2 K/mcL (4.3-11.1)
[2022-01-18 07:38] LABS: % Iron Saturation 4 % (20-55); BUN/Creatinine Ratio 12 (6-26); Blood Urea Nitrogen 13 mg/dL (6-20); Calcium 8.2 mg/dL (8.6-10.3); Carbon Dioxide 34 mEq/L (23-29); Chloride 102 mEq/L (98-107); Chol/HDL Ratio 3.2 (0-4.9); Cholesterol 82 mg/dL (< 200); Glucose 124 mg/dL (70-105); HDL Cholesterol 26 mg/dL (40-59); Iron 17 mcg/dL (65-175); LDL Cholesterol,Calculated 41 mg/dL (< 100); Magnesium 1.7 mg/dL (1.6-2.6); Osmolality,Calculated 298 (280-300); Potassium 3.3 mEq/L (3.5-5.1); Sodium 143 mEq/L (136-145); Transferrin 296 mg/dL (203-362); Triglycerides 77 mg/dL (< 150); eGFR For African Americans > 60 (> 60); eGFR For Non-African Americans > 60 (> 60)
[2022-01-18 07:39] LABS: Ferritin 12 ng/mL (20-250)
[2022-01-18 07:45] LABS: Folate 11.2 ng/mL (3.0-16.0)
[2022-01-18] MEDS: Budesonide/Formoterol 80/4.5 1 PUFF INH IH SCH ×2 (07:52→20:16)
[2022-01-18] MEDS: Tiotropium 10 INH DOSE IH SCH (07:52)
[2022-01-18] MEDS: allopurinoL 300 MG TABLET PO SCH (08:22)
[2022-01-18] MEDS: Morphine Sulfate ER (12 HR) 60 MG TABLET.ER PO SCH ×2 (08:22→21:20)
[2022-01-18] MEDS: carvediloL 6.25 MG TABLET PO SCH ×2 (08:22→21:20)
[2022-01-18] MEDS: Pregabalin 75 MG CAPSULE PO SCH ×2 (08:22→21:20)
[2022-01-18] MEDS: Lactulose Oral Soln 20 GM/30 ML UDC PO SCH ×2 (08:23→21:21)
[2022-01-18] MEDS: Furosemide 40 MG/4 ML VIAL IVP SCH ×2 (08:24→16:34)
[2022-01-18] MEDS: Ondansetron 4 MG/2 ML VIAL IVP PRN (09:20)
[2022-01-18] MEDS ORDERED: *HR* Promethazine 25 MG/ML VIAL IM ONE (11:07)
[2022-01-18 12:32] LABS: Thyroid Stimulating Hormone 2.676 mcIU/mL (0.340-5.600)
[2022-01-18] MEDS: *HR* Rivaroxaban 10 MG TABLET PO SCH (16:34)
[2022-01-18] MEDS: traZODone 50 MG TABLET PO SCH (21:20)
[2022-01-19] MEDS: *HR* OxyCODONE/APAP 10/325 TABLET PO PRN ×3 (02:45→23:11)
[2022-01-19 05:55] LABS: Hemoglobin 8.6 g/dL (12.9-16.9); Monocytes % 11.9 %
[2022-01-19 05:57] LABS: Basophils % 0.5 %; Eosinophils # 0.3 K/mcL (0.0-0.6); Eosinophils % 4.5 %; Hematocrit 33.3 % (37.5-50.1); Immature Granulocytes % 0.4 % (0-4); Lymphocytes # 1.1 K/mcL (0.6-4.6); Mean Corpuscular HGB Conc 25.8 g/dL (31.6-35.5); Mean Corpuscular Hemoglobin 20.2 pg (28.0-33.3); Mean Corpuscular Volume 78.4 fL (83.0-100.0); Mean Platelet Volume 10.1 fL (9.4-12.4); Monocytes # 0.9 K/mcL (0.0-1.3); Neutrophils # 5.2 K/mcL (1.6-8.9); Platelet Count 159 K/mcL (140-400); Red Blood Count 4.25 M/mcL (4.19-5.50); Segmented Neutrophils % 68.7 %; White Blood Count 7.6 K/mcL (4.3-11.1)
[2022-01-19 06:28] LABS: Alanine Aminotransferase 7 Units/L (7-52); Albumin 3.5 g/dL (3.5-5.7); Albumin/Globulin Ratio 1.3 (1.1-2.2); Alkaline Phosphatase 77 Units/L (34-104); Aspartate Amino Transferase 10 Units/L (13-39); BUN/Creatinine Ratio 10 (6-26); Bilirubin,Total 0.9 mg/dL (0.3-1.0); Blood Urea Nitrogen 12 mg/dL (6-20); Calcium 8.2 mg/dL (8.6-10.3); Carbon Dioxide 41 mEq/L (23-29); Chloride 100 mEq/L (98-107); Globulin 2.8 g/dL (2.4-3.5); Glucose 141 mg/dL (70-105); Osmolality,Calculated 298 (280-300); Potassium 3.5 mEq/L (3.5-5.1); Sodium 143 mEq/L (136-145); Total Protein 6.3 g/dL (6.4-8.9); eGFR For African Americans > 60 (> 60); eGFR For Non-African Americans > 60 (> 60)
[2022-01-19 06:42] LABS: Hypochromasia Present (Not Present)
[2022-01-19] MEDS: Budesonide/Formoterol 80/4.5 1 PUFF INH IH SCH ×2 (07:52→19:56)
[2022-01-19] MEDS: Tiotropium 10 INH DOSE IH SCH (07:53)
[2022-01-19] MEDS: Ondansetron 4 MG/2 ML VIAL IVP PRN (09:16)
[2022-01-19] MEDS: Pregabalin 75 MG CAPSULE PO SCH ×2 (10:14→21:07)
[2022-01-19] MEDS: carvediloL 6.25 MG TABLET PO SCH ×2 (10:14→21:08)
[2022-01-19] MEDS: Morphine Sulfate ER (12 HR) 60 MG TABLET.ER PO SCH ×2 (10:14→21:08)
[2022-01-19] MEDS: allopurinoL 300 MG TABLET PO SCH (10:15)
[2022-01-19] MEDS: Lactulose Oral Soln 20 GM/30 ML UDC PO SCH ×2 (10:15→21:08)
[2022-01-19] MEDS: Furosemide 20 MG TABLET PO SCH ×2 (10:15→18:15)
[2022-01-19] MEDS ORDERED: Iron Sucrose Complex 400 MG in 0.9 % Sodium Chloride 250 ML IVPB ONE (11:28)
[2022-01-19] MEDS ORDERED: *HR* Promethazine 25 MG/ML VIAL IM ONE (14:06)
[2022-01-19] MEDS: *HR* Rivaroxaban 10 MG TABLET PO SCH (18:15)
[2022-01-19] MEDS: traZODone 50 MG TABLET PO SCH (21:07)
[2022-01-20] MEDS: Ondansetron 4 MG/2 ML VIAL IVP PRN ×3 (04:17→22:35)
[2022-01-20 06:48] LABS: Basophils # 0.1 K/mcL (0.0-0.2); Basophils % 0.6 %; Eosinophils % 3.6 %; Hematocrit 34.5 % (37.5-50.1); Hemoglobin 8.9 g/dL (12.9-16.9); Immature Granulocytes % 0.7 % (0-4); Lymphocytes % 10.8 %; Mean Corpuscular HGB Conc 25.8 g/dL (31.6-35.5); Mean Corpuscular Hemoglobin 20.4 pg (28.0-33.3); Mean Corpuscular Volume 79.1 fL (83.0-100.0); Mean Platelet Volume 10.8 fL (9.4-12.4); Monocytes # 1.1 K/mcL (0.0-1.3); Monocytes % 11.9 %; Nucleated Red Blood Cells 0.2 /100 WBC (0); Platelet Count 158 K/mcL (140-400); Red Blood Count 4.36 M/mcL (4.19-5.50); Red Cell Distribution Width 18.9 % (11.5-14.5); Segmented Neutrophils % 72.4 %; White Blood Count 9.6 K/mcL (4.3-11.1)
[2022-01-20 06:52] LABS: Eosinophils # 0.4 K/mcL (0.0-0.6)
[2022-01-20 07:19] LABS: BUN/Creatinine Ratio 11 (6-26); Blood Urea Nitrogen 12 mg/dL (6-20); Calcium 8.7 mg/dL (8.6-10.3); Carbon Dioxide 36 mEq/L (23-29); Chloride 100 mEq/L (98-107); Glucose 105 mg/dL (70-105); Osmolality,Calculated 290 (280-300); Potassium 4.4 mEq/L (3.5-5.1); Sodium 140 mEq/L (136-145); eGFR For African Americans > 60 (> 60); eGFR For Non-African Americans > 60 (> 60)
[2022-01-20] MEDS: allopurinoL 300 MG TABLET PO SCH (08:54)
[2022-01-20] MEDS: Pregabalin 75 MG CAPSULE PO SCH ×2 (08:54→19:57)
[2022-01-20] MEDS: Morphine Sulfate ER (12 HR) 60 MG TABLET.ER PO SCH ×2 (08:55→19:57)
[2022-01-20] MEDS: carvediloL 6.25 MG TABLET PO SCH ×2 (08:55→19:58)
[2022-01-20] MEDS: Furosemide 20 MG TABLET PO SCH ×2 (08:55→17:16)
[2022-01-20] MEDS: Lactulose Oral Soln 20 GM/30 ML UDC PO SCH ×2 (08:55→19:59)
[2022-01-20] MEDS: Budesonide/Formoterol 80/4.5 1 PUFF INH IH SCH ×2 (10:33→19:54)
[2022-01-20] MEDS: Tiotropium 10 INH DOSE IH SCH (10:33)
[2022-01-20] MEDS: *HR* OxyCODONE/APAP 10/325 TABLET PO PRN ×2 (14:39→22:31)
[2022-01-20] MEDS: *HR* Rivaroxaban 10 MG TABLET PO SCH (17:16)
[2022-01-20] MEDS: traZODone 50 MG TABLET PO SCH (19:57)
[2022-01-21] MEDS ORDERED: *HR* Promethazine 25 MG/ML VIAL IM ONE (00:39)
[2022-01-21 03:54] LABS: BUN/Creatinine Ratio 14 (6-26); Blood Urea Nitrogen 16 mg/dL (6-20); Calcium 8.7 mg/dL (8.6-10.3); Carbon Dioxide 36 mEq/L (23-29); Chloride 99 mEq/L (98-107); Glucose 167 mg/dL (70-105); Osmolality,Calculated 293 (280-300); Potassium 4.4 mEq/L (3.5-5.1); Sodium 139 mEq/L (136-145); eGFR For African Americans > 60 (> 60); eGFR For Non-African Americans > 60 (> 60)
[2022-01-21] MEDS: Lactulose Oral Soln 20 GM/30 ML UDC PO SCH ×2 (07:30→21:52)
[2022-01-21] MEDS: Pregabalin 75 MG CAPSULE PO SCH ×2 (07:30→21:52)
[2022-01-21] MEDS: carvediloL 6.25 MG TABLET PO SCH ×2 (07:31→21:52)
[2022-01-21] MEDS: allopurinoL 300 MG TABLET PO SCH (07:32)
[2022-01-21] MEDS: Furosemide 20 MG TABLET PO SCH ×2 (07:32→16:05)
[2022-01-21] MEDS: Morphine Sulfate ER (12 HR) 60 MG TABLET.ER PO SCH ×2 (07:42→21:52)
[2022-01-21] MEDS: Budesonide/Formoterol 80/4.5 1 PUFF INH IH SCH ×2 (11:07→19:55)
[2022-01-21] MEDS: Tiotropium 10 INH DOSE IH SCH (11:07)
[2022-01-21] MEDS: *HR* OxyCODONE/APAP 10/325 TABLET PO PRN (12:59)
[2022-01-21] MEDS: *HR* Rivaroxaban 10 MG TABLET PO SCH (16:05)
[2022-01-21] MEDS: Ondansetron 4 MG/2 ML VIAL IVP PRN (19:56)
[2022-01-21] MEDS: traZODone 50 MG TABLET PO SCH (21:52)
[2022-01-22] MEDS: *HR* OxyCODONE/APAP 10/325 TABLET PO PRN (00:18)
[2022-01-22] MEDS: Ondansetron 4 MG/2 ML VIAL IVP PRN (06:01)
[2022-01-22 06:49] VITALS: O2SAT 97
[2022-01-22] MEDS: Lactulose Oral Soln 20 GM/30 ML UDC PO SCH (08:52)
[2022-01-22] MEDS: allopurinoL 300 MG TABLET PO SCH (08:52)
[2022-01-22] MEDS: Morphine Sulfate ER (12 HR) 60 MG TABLET.ER PO SCH (08:53)
[2022-01-22] MEDS: Furosemide 20 MG TABLET PO SCH (08:53)
[2022-01-22] MEDS: Pregabalin 75 MG CAPSULE PO SCH (08:53)
[2022-01-22] MEDS: carvediloL 6.25 MG TABLET PO SCH (08:53)
[2022-01-22] MEDS: Tiotropium 10 INH DOSE IH SCH (10:14)
[2022-01-22] MEDS: Budesonide/Formoterol 80/4.5 1 PUFF INH IH SCH (10:14)
[2022-01-22 10:32] VITALS: BP 113/71; PULSE 84; TEMP 97.3
== END 2022-01-22 12:20 | disposition home or self-care (01) | DRG 291 ==
LOC: 3BNU → SUATTDRO 19:37
PROVIDERS: ADMIT Hospitalist; ATTEND Family Medicine

== ENCOUNTER 2022-03-25 18:40 | Inpatient (IN) ==
[2022-03-25] MEDS ORDERED: Melatonin 3 MG TABLET PO PRN (22:29)
[2022-03-25] MEDS ORDERED: Naloxone 0.4 MG/ML INJ IVP PRN (22:29)
[2022-03-25 22:56] LABS: ABG Base Excess 1 mEq/L (-2 to 3); ABG HCO3 28 mEq/L (21-27); ABG Oxygen Saturation 95 % (95-98); ABG PCO2 53 mmHg (35-45); ABG PH 7.33 pH Units (7.32-7.45); ABG PO2 80 mmHg (85-104); ABG TCO2 30 mEq/L (20-26)
[2022-03-25] MEDS: *HR* OxyCODONE/APAP 10/325 TABLET PO PRN (23:34)
[2022-03-25] MEDS: Furosemide 40 MG/4 ML VIAL IVP SCH (23:34)
[2022-03-25] MEDS: Azithromycin 500 MG in 0.9 % Sodium Chloride 250 ML IVPB SCH (23:35)
[2022-03-26] MEDS: Ipratropium/Albuterol Neb 3 ML IH SCH ×7 (00:37→23:02)
[2022-03-26 01:14] LABS: Hematocrit 42.2 % (37.5-50.1); Hemoglobin 12.7 g/dL (12.9-16.9); Mean Corpuscular HGB Conc 30.1 g/dL (31.6-35.5); Mean Corpuscular Hemoglobin 24.9 pg (28.0-33.3); Mean Corpuscular Volume 82.7 fL (83.0-100.0); Mean Platelet Volume 9.9 fL (9.4-12.4); Platelet Count 159 K/mcL (140-400); Red Cell Distribution Width 21.7 % (11.5-14.5); White Blood Count 9.7 K/mcL (4.3-11.1)
[2022-03-26 01:21] LABS: INR 2.9; Prothrombin Time 31.8 Seconds (9.4-12.1)
[2022-03-26 01:30] LABS: Albumin 3.9 g/dL (3.5-5.7); Albumin/Globulin Ratio 1.1 (1.1-2.2); Bilirubin,Total 0.7 mg/dL (0.3-1.0); Calcium 8.8 mg/dL (8.6-10.3); Globulin 3.5 g/dL (2.4-3.5); Magnesium 1.9 mg/dL (1.6-2.6); Phosphorous 3.3 mg/dL (2.7-4.5); Potassium 5.2 mEq/L (3.5-5.1); Total Protein 7.4 g/dL (6.4-8.9)
[2022-03-26 02:28] LABS: Protein/Creatinine Ratio,Urine 0.38 mg/mg (0.00-0.20); Sodium, Urine 34.1 mEq/L
[2022-03-26] MEDS: MethylPREDNISolone 40 MG/ML VIAL IVP SCH ×2 (05:38→16:13)
[2022-03-26] MEDS ORDERED: *HR* Enoxaparin 40 MG/0.4 ML SYRINGE SQ SCH (06:00)
[2022-03-26] MEDS: Lactulose Oral Soln 20 GM/30 ML UDC PO SCH ×2 (08:56→20:42)
[2022-03-26] MEDS: Furosemide 40 MG/4 ML VIAL IVP SCH ×2 (08:56→16:13)
[2022-03-26] MEDS: *HR* OxyCODONE/APAP 10/325 TABLET PO PRN ×3 (08:56→22:25)
[2022-03-26] MEDS: carvediloL 6.25 MG TABLET PO SCH (16:13)
[2022-03-26] MEDS ORDERED: Warfarin perPT PO PRN (18:00)
[2022-03-26] MEDS ORDERED: *HR* Warfarin 2 MG TABLET PO ONE (18:00)
[2022-03-26] MEDS: Acetaminophen 325 MG TABLET PO PRN (20:54)
[2022-03-27] MEDS: Azithromycin 500 MG in 0.9 % Sodium Chloride 250 ML IVPB SCH (00:02)
[2022-03-27] MEDS: Ipratropium/Albuterol Neb 3 ML IH SCH ×6 (04:18→23:24)
[2022-03-27] MEDS: *HR* OxyCODONE/APAP 10/325 TABLET PO PRN ×3 (04:32→20:23)
[2022-03-27 05:38] LABS: Basophils % 0.1 %; Hematocrit 39.8 % (37.5-50.1); Hemoglobin 11.9 g/dL (12.9-16.9); Immature Granulocytes % 1.2 % (0-4); Lymphocytes # 0.5 K/mcL (0.6-4.6); Lymphocytes % 3.1 %; Mean Corpuscular HGB Conc 29.9 g/dL (31.6-35.5); Mean Corpuscular Hemoglobin 24.3 pg (28.0-33.3); Mean Corpuscular Volume 81.2 fL (83.0-100.0); Mean Platelet Volume 10.6 fL (9.4-12.4); Monocytes # 0.9 K/mcL (0.0-1.3); Monocytes % 5.2 %; Neutrophils # 14.8 K/mcL (1.6-8.9); Platelet Count 192 K/mcL (140-400); Red Cell Distribution Width 21.9 % (11.5-14.5); Segmented Neutrophils % 90.4 %
[2022-03-27 05:41] LABS: White Blood Count 16.4 K/mcL (4.3-11.1)
[2022-03-27 05:44] LABS: INR 2.2
[2022-03-27] MEDS: MethylPREDNISolone 40 MG/ML VIAL IVP SCH (05:50)
[2022-03-27 05:59] LABS: Calcium 8.9 mg/dL (8.6-10.3); Potassium 3.9 mEq/L (3.5-5.1)
[2022-03-27] MEDS: carvediloL 6.25 MG TABLET PO SCH ×2 (08:09→16:29)
[2022-03-27] MEDS: Lactulose Oral Soln 20 GM/30 ML UDC PO SCH ×3 (08:18→20:22)
[2022-03-27] MEDS: Furosemide 40 MG/4 ML VIAL IVP SCH (08:22)
[2022-03-27] MEDS: Acetaminophen 325 MG TABLET PO PRN (09:15)
[2022-03-27] MEDS: Furosemide 40 MG TABLET PO SCH (16:29)
[2022-03-27] MEDS ORDERED: *HR* Warfarin 2.5 MG TABLET PO ONE (18:00)
[2022-03-27] MEDS: Budesonide/Formoterol 80/4.5 1 PUFF INH IH SCH (20:07)
[2022-03-27] MEDS: Pregabalin 75 MG CAPSULE PO SCH (20:23)
[2022-03-27] MEDS ORDERED: traZODone 50 MG TABLET PO SCH (21:00)
[2022-03-28] MEDS: Azithromycin 500 MG in 0.9 % Sodium Chloride 250 ML IVPB SCH (00:53)
[2022-03-28] MEDS: *HR* OxyCODONE/APAP 10/325 TABLET PO PRN ×2 (02:24→09:48)
[2022-03-28 03:08] LABS: Basophils % 0.1 %; Hematocrit 40.5 % (37.5-50.1); Hemoglobin 12.1 g/dL (12.9-16.9); Immature Granulocytes % 0.8 % (0-4); Lymphocytes # 0.8 K/mcL (0.6-4.6); Lymphocytes % 5.1 %; Mean Corpuscular HGB Conc 29.9 g/dL (31.6-35.5); Mean Corpuscular Hemoglobin 24.3 pg (28.0-33.3); Mean Corpuscular Volume 81.5 fL (83.0-100.0); Mean Platelet Volume 10.4 fL (9.4-12.4); Monocytes # 1.4 K/mcL (0.0-1.3); Monocytes % 8.6 %; Neutrophils # 13.5 K/mcL (1.6-8.9); Platelet Count 178 K/mcL (140-400); Red Blood Count 4.97 M/mcL (4.19-5.50); Red Cell Distribution Width 21.9 % (11.5-14.5); Segmented Neutrophils % 85.4 %; White Blood Count 15.8 K/mcL (4.3-11.1)
[2022-03-28 03:11] LABS: INR 1.9; Prothrombin Time 21.4 Seconds (9.4-12.1)
[2022-03-28 03:25] LABS: Calcium 8.8 mg/dL (8.6-10.3); Magnesium 1.9 mg/dL (1.6-2.6); Potassium 3.5 mEq/L (3.5-5.1)
[2022-03-28] MEDS: Ipratropium/Albuterol Neb 3 ML IH SCH ×4 (04:03→15:26)
[2022-03-28] MEDS: Budesonide/Formoterol 80/4.5 1 PUFF INH IH SCH (07:33)
[2022-03-28] MEDS ORDERED: allopurinoL 300 MG TABLET PO SCH (09:00)
[2022-03-28] MEDS ORDERED: Multivit/Ca/Min/Fe/FA 1 TAB TABLET PO SCH (09:00)
[2022-03-28] MEDS ORDERED: predniSONE 20 MG TABLET PO SCH (09:00)
[2022-03-28] MEDS ORDERED: DilTIAZem CD (24hr) 120 MG CAP.ER.24H PO SCH (09:00)
[2022-03-28] MEDS ORDERED: Ondansetron 4 MG/2 ML VIAL IVP PRN (09:26)
[2022-03-28] MEDS: carvediloL 6.25 MG TABLET PO SCH (09:47)
[2022-03-28] MEDS: Furosemide 40 MG TABLET PO SCH (09:49)
[2022-03-28] MEDS: Pregabalin 75 MG CAPSULE PO SCH (09:49)
[2022-03-28] MEDS: Lactulose Oral Soln 20 GM/30 ML UDC PO SCH (09:50)
[2022-03-28 11:15] VITALS: BP 128/85; PULSE 81; TEMP 98.2
[2022-03-28 11:22] VITALS: O2SAT 99
[2022-03-28] MEDS ORDERED: *HR* Warfarin 2.5 MG TABLET PO ONE (18:00)
== END 2022-03-28 15:25 | disposition home or self-care (01) | DRG 291 ==
LOC: 3NENU → SUATTDRO 21:49
PROVIDERS: ADMIT Internal Medicine; ATTEND Family Medicine